=== PATIENT | female | born 1960 | race Caucasian/White ===

== ENCOUNTER 2020-03-19 09:28 | Outpatient (CLI) | payer BC, SELFPAY ==
--- NOTE | ~2020-03-19 | MM_ITS ---
EXAMINATION: MM screening edwin BI w marc HISTORY: Screening TECHNIQUE: Craniocaudal and mediolateral oblique 3-D tomosynthesis images were obtained and synthetic 2-D images were generated. CAD analysis was submitted and interpreted. COMPARISON: Comparison to multiple prior studies sequentially, with oldest reviewed study dated 01/26. BREAST PARENCHYMAL COMPOSITION: Breast composed of scattered areas of fibroglandular density. FINDINGS: There is focal asymmetry in the upper outer quadrant of the right breast. The left breast i s stable without evidence for malignancy. IMPRESSION: 1. Focal right breast asymmetry, upper outer quadrant. 2. Additional mammographic views and possible breast ultrasound are recommended. BI-RADS Category 0: Incomplete: Needs additional imaging evaluation. Reviewed, dictated and finalized at location A. IMPRESSION: 1. Focal right breast asymmetry, upper outer quadrant. 2. Additional mammographic views and possible breast ultrasound are recommended . BI-RADS Category 0: Incomplete: Needs additional imaging evaluation.
[2020-03-19 12:37] LABS: Free T4 Free Thyroxine 1.01 ng/mL (0.78-2.19); Vitamin D 25 Hydroxy 34.3 ng/mL
== END 2020-03-19 09:29 | disposition home or self-care (01) ==
PROVIDERS: Nurse Practitioner; PCP Internal Medicine; Visit Provider Obstetrics & Gynecology
DX: Z12.31 Encounter for screening mammogram for malignant neoplasm of breast (principal); R94.6 Abnormal results of thyroid function studies; E55.9 Vitamin D deficiency, unspecified; R92.8 Other abnormal and inconclusive findings on diagnostic imaging of breast
CPT/HCPCS: 36415; 77063; 77067; 82306; 84439; 84443

== ENCOUNTER 2020-04-15 13:30 | Outpatient (CLI) | payer BC, MEDICAID, SELFPAY ==
--- NOTE | ~2020-04-15 | MMUS_ITS ---
EXAMINATION: MM diagnostic mammo unilat RT, US breast RT limited HISTORY: Follow-up right breast asymmetry TECHNIQUE: Additional 3-D tomosynthesis images of the right breast were performed and synthetic 2-D i mages were generated. CAD analysis was submitted and interpreted. High resolution limited right breas t ultrasound was performed. COMPARISON: 03/19/2020 BREAST PARENCHYMAL COMPOSITION: Breast composed of scattered areas of fibroglandular density. FINDINGS: MAMMOGRAPHIC FINDINGS: Breast composed of scattered areas of fibroglandular density. There are no suspicious masses, calcifi cations or architectural distortion to suggest malignancy. Focal asymmetry is less apparent with comp ression views. ULTRASOUND: Limited right breast ultrasound: At 9:00, 7 cm from the nipple, there is a 5 mm intramammary lymph no de. No suspicious masses to suggest malignancy. IMPRESSION: 1. No evidence for malignancy in the right breast. 2. Routine yearly screening mammogram and regular clinical breast examination are recommended. BI-RADS Category 1: Negative Reviewed, dictated and finalized at location A. IMPRESSION: 1. No evidence for malignancy in the right breast. 2. Routine yearly screening mammogram and regular clinical breast examination a re recommended. BI-RADS Category 1: Negative
== END 2020-04-15 13:31 | disposition home or self-care (01) ==
PROVIDERS: PCP Internal Medicine; Visit Provider Obstetrics & Gynecology
DX: R92.8 Other abnormal and inconclusive findings on diagnostic imaging of breast (principal)
CPT/HCPCS: 76642; 77065

== ENCOUNTER 2020-09-16 10:25 | Outpatient (CLI) | payer OTHER, SELFPAY ==
--- NOTE | ~2020-09-16 | CT_ITS ---
EXAMINATION: CT brain wo con EXAM DATE: 09/16/2020 10:58 INDICATION: G44.309 - Post-traumatic posterior headache, unspecified, not intractable. Blurry vision and dizziness. TECHNIQUE: Spiral CT of the head was performed without contrast. Axial, coronal and sagittal images were reviewed. The dose-length product (DLP) for this examination was 605.33 mGy-cm. The exposure w as tailored according to patient size, and iterative reconstruction (ASIR) was used as additional dos e reduction technique. Comparison is made to prior examination from 07/29/2017. FINDINGS: There is no acute intraparenchymal hemorrhage. No evidence of intraparenchymal brain mass lesion. No evidence of acute infarction. There is no mass effect or midline shift. The ventricles are normal in size. There are no extra-axial collections. There are no acute calvarial fractures. T he orbits are unremarkable. Soft tissue is unremarkable. The visualized sinuses and mastoid air erasmo ls are well aerated. IMPRESSION: 1. Unremarkable head CT examination. Reviewed, dictated and finalized at location B. 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
== END 2020-09-16 10:26 | disposition home or self-care (01) ==
PROVIDERS: PCP Internal Medicine; Visit Provider Nurse Practitioner
DX: G44.309 Post-traumatic headache, unspecified, not intractable (principal)
CPT/HCPCS: 70450

== ENCOUNTER 2020-10-15 13:20 | Outpatient (CLI) | payer OTHER, SELFPAY ==
--- NOTE | 2020-10-15 14:30 | NEURO_ITS ---
Impression: # Complains of left upper extremity pain. # No Carpal Tunnel Syndrome or ulnar neuropathy. # Normal needle/EMG exam. # Clinical correlation recommended. Nerve Conduction Studies Anti Sensory Summary Table Stim Site NR Peak (ms) P-T Amp (?V) Site1 Site2 Delta-P (ms) Dist (cm) Tomi (m/s) Left Median Anti Sensory (2-3nd Digit) Wrist 2.8 98.2 Wrist 2-3nd Digit 2.8 14.0 50 Wrist 2.8 85.2 Wrist 2-3nd Digit 2.8 14.0 50 Left Radial Anti Sensory (Base 1st Digit) Wrist 1.9 19.0 Wrist Base 1st Digit 1.9 0.0 Left Ulnar Anti Sensory (5th Digit) Wrist 2.3 85.2 Wrist 5th Digit 2.3 14.0 61 Motor Summary Table Stim Site NR Onset (ms) O-P Amp (mV) Site1 Site2 Delta-0 (ms) Dist (cm) Tomi (m/s) Left Median Motor (Abd Poll Brev) Wrist 2.7 6.7 Elbow Wrist 3.9 24.0 62 Elbow 6.6 6.4 Left Ulnar Motor (Abd Dig Minimi) Wrist 2.2 6.7 A Elbow Wrist 4.4 26.0 59 A Elbow 6.6 4.3 F Wave Studies NR F-Lat (ms) L-R F-Lat (ms) Left Median (Mrkrs) (Abd Poll Brev) 24.80 Left Ulnar (Mrkrs) (Abd Dig Min) 25.44 EMG Side Muscle Nerve Root Ins Act Fibs Amp Dur Recrt Comment Left 1stDorInt Ulnar C8-T1 Nml Nml Nml Nml Nml Left Ext Indicis Radial (Post Int) C7-8 Nml Nml Nml Nml Nml Left Ext Digitorum Radial (Post Int) C7-8 Nml Nml Nml Nml Nml Left BrachioRad Radial C5-6 Nml Nml Nml Nml Nml Left PronatorTeres Median C6-7 Nml Nml Nml Nml Nml Left Abd Poll Brev Median C8-T1 Nml Nml Nml Nml Nml Left ABD Dig Min Ulnar C8-T1 Nml Nml Nml Nml Nml Left Biceps Musculocut C5-6 Nml Nml Nml Nml Nml Left Triceps Radial C6-7-8 Nml Nml Nml Nml Nml MTDD
== END 2020-10-15 13:21 | disposition home or self-care (01) ==
LOC: ANHNEURO 13:22
PROVIDERS: PCP Internal Medicine; Visit Provider Nurse Practitioner
DX: R20.2 Paresthesia of skin (principal)
CPT/HCPCS: 95886; 95909

== ENCOUNTER 2021-02-04 08:46 | Outpatient (CLI) | payer OTHER, SELFPAY ==
[2021-02-04 10:36] LABS: Alanine Aminotransferase 20 U/L (4-35); Albumin Level 4.5 g/dL (3.5-5.1); Alkaline Phosphatase 98 U/L (38-126); Anion Gap 9 mmol/L (8-16); Aspartate Amino Transferase 26 U/L (14-36); Bilirubin,Total 0.5 mg/dL (0.2-1.3); Blood Urea Nitrogen 15 mg/dL (7-17); Calcium 9.6 mg/dL (8.4-10.2); Carbon Dioxide 25 mmol/L (22-30); Chloride 106 mmol/L (98-107); Estimated Glomerular Filt Rate > 60; Glucose 87 mg/dL (65-110); Potassium 4.3 mmol/L (3.4-5.0); Sodium 140 mmol/L (137-145)
[2021-02-04 10:51] LABS: Free T4 Free Thyroxine 1.21 ng/mL (0.78-2.19); Vitamin D 25 Hydroxy 54.2 ng/mL
== END 2021-02-04 08:47 | disposition home or self-care (01) ==
PROVIDERS: Nurse Practitioner; PCP Internal Medicine; Visit Provider Internal Medicine Hematology & Oncology
DX: E55.9 Vitamin D deficiency, unspecified (principal); R94.6 Abnormal results of thyroid function studies; Z79.899 Other long term (current) drug therapy
CPT/HCPCS: 36415; 80053; 82306; 84439; 84443

== ENCOUNTER 2021-03-02 09:34 | Outpatient (CLI) | payer OTHER, SELFPAY ==
--- NOTE | ~2021-03-02 | DEXA_ITS ---
Bone Density Report Name: Brittany Loja Age: 60 Sex: Female Ethnicity: White Date of : 1960 Indication: postmenopausal; height loss; prior fracture; asthma or emphysema; Referring Provider: EFREM VICENTE Study: Bone densitometry was performed. Exam Date: March 02, 2021 Accession number: [id number] Bone Density: Region BMD T-score Z-score Classification AP Spine (L1-L4) 0.910 -1.2 0.1 Osteopenia Femoral Neck (Left) 0.566 -2.6 -1.3 Osteoporosis Total Hip (Left) 0.733 -1.7 -0.8 Osteopenia Total Hip Bilateral Avg 0.712 -1.9 -1.0 Osteopenia Femoral Neck (Right) 0.582 -2.4 -1.2 Osteopenia Total Hip (Right) 0.690 -2.1 -1.1 Osteopenia World Health Organization criteria for BMD impression classify patients as: Normal (T-score at or above -1.0), Osteopenia (T-score between -1.0 and -2.5), or Osteoporosis (T-score at or below -2.5). 10-year Fracture Risk: FRAX not reported because: Some T-score for Spine Total or Hip Total or Femoral Neck at or below -2.5 Clinical Information Provided by Patient: Has had a low trauma fracture Has used the following medications: Vitamin D, Calcium Has the following medical conditions: Asthma or Emphysema Patient maximum height was 62 Menopause Age: 58 Does not regularly consume dairy products Drinks caffeinated beverages Onset of menses at age 14 Number of children 3 Impression: The patient has established osteoporosis, based on the Left Femoral Neck T-score and the existence of a prior fracture. The patient has risk factors, including: previous fracture. Discussion: HIGH RISK OF FRACTURE. BONE DENSITY IS UNDESIRABLY LOW AT ONE OR MORE SKELETAL SITES, CONSISTENT WITH POSTMENOPAUSAL OSTEOPOROSIS. This patient's lowest T-score, in a patient who has previously fractured, meets the World Health Organization's (WHO) criteria for severe osteoporosis. In untreated patients, the risk of osteoporotic fracture increases approximately two-fold for each 1.0 SD decrease in T-score. Low bone density is not the only risk factor for fracture; also consider factors such as patient's age, frailty or poor health, risk of falling, risk of injury, previous osteoporotic fracture, family history of osteoporosis, cigarette smoking, low body weight, etc. Not everyone with low bone mineral density has osteoporosis; osteomalacia and other metabolic bone disorders should also be considered. Patients who have osteoporosis should be evaluated for specific diseases and conditions (secondary causes) that may cause or contribute to bone loss. The [place] [employer] Endocrinologists (AACE) and National Osteoporosis Foundation (NOF) recommend pharmacologic intervention for all postmenopausal women whose T-score is in this range. The patient should follow a healthful lifestyle (good nutrition with adequa
== END 2021-03-02 09:35 | disposition home or self-care (01) ==
PROVIDERS: PCP Internal Medicine; Visit Provider Obstetrics & Gynecology
DX: Z13.820 Encounter for screening for osteoporosis (principal); Z78.0 Asymptomatic menopausal state; M85.88 Other specified disorders of bone density and structure, other site; M81.0 Age-related osteoporosis without current pathological fracture; M85.852 Other specified disorders of bone density and structure, left thigh; M85.851 Other specified disorders of bone density and structure, right thigh
CPT/HCPCS: 77080

== ENCOUNTER 2021-03-24 14:53 | Outpatient (CLI) | payer OTHER, SELFPAY ==
--- NOTE | ~2021-03-24 | MM_ITS ---
EXAMINATION: MM screening edwin BI w marc HISTORY: Screening TECHNIQUE: Craniocaudal and mediolateral oblique 3-D tomosynthesis images were obtained and synthetic 2-D images were generated. CAD analysis was submitted and interpreted. COMPARISON: Comparison to multiple prior studies sequentially, with oldest reviewed study dated 03/07. BREAST PARENCHYMAL COMPOSITION: There are scattered areas of fibroglandular density. FINDINGS: There is no evidence of suspicious mass, calcification, or architectural distortion to sugg est malignancy in either breast. There has been no suspicious interval change. IMPRESSION: 1. No mammographic evidence of malignancy. 2. Recommend routine screening mammography in one year. BI-RADS Category 1: Negative Reviewed, dictated and finalized at location A.
== END 2021-03-24 14:54 | disposition home or self-care (01) ==
LOC: ANHIMG 14:54
PROVIDERS: PCP Internal Medicine; Visit Provider Obstetrics & Gynecology
DX: Z12.31 Encounter for screening mammogram for malignant neoplasm of breast (principal)
CPT/HCPCS: 77063; 77067

== ENCOUNTER 2021-10-19 00:13 | Day surgery (SDC) | payer OTHER, SELFPAY ==
[2021-10-07 15:10] VITALS: BMI 26.9
--- NOTE | 2021-10-18 11:15 | PM.HPGS ---
History of Present Illness History of Present Illness Consent: Risks, benefits, and alternatives have been discussed and questions answered. Patient agrees to proceed with procedure. Chief complaint: neoplasm screening Narrative: Brittany Loja is a 61 year old female Was referred for colon cancer screening. Her last colonoscopy was 10 years ago Review of Systems Review of Systems: All systems reviewed & are unremarkable except as noted in HPI and below PMFSH Past Medical History Medical History Osteoporosis Uncomplicated asthma Vitamin D deficiency Family History Family History Mother Hypertension Father Family history of malignant neoplasm Social History Social History Smoking packs per day: 1 Smoking cigarettes per day: 20.0 Years smoked: 8 Smoking pack-years: 8.00 Smoking status: Former smoker Tobacco type: cigarettes Second hand tobacco smoke exposure: No Smoking end date: 05/22/87 Alcohol intake: former 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 Substance use: current Substance use type: marijuana Living arrangements: alone Additional occupation/education comments: works for [employer] Gender identity (if verbalized by the patient): Female Sexual Orientation (if Verbalized by the Patient): Straight or Heterosexual Spiritual care concerns: No Meds Home Medications and Allergies Home Medications Medication Instructions Recorded Confirmed Type estradiol-norethindrone acet 0.5 1 tablet PO DAILY 05/31/19 10/19/21 History mg-0.1 mg tablet cholecalciferol (vitamin D3) 125 125 mcg PO DAILY #30 cap 09/12/20 10/19/21 Rx mcg (5,000 unit) capsule albuterol sulfate 90 mcg/actuation 2 inh INHALATION Q4H PRN #18 g 02/04/21 10/19/21 Rx aerosol inhaler methocarbamol 750 mg tablet 750 mg PO TID PRN #45 tablet 02/04/21 10/19/21 Rx montelukast 10 mg tablet 10 mg PO DAILY #90 tablet 06/02/21 10/19/21 Rx alendronate 70 mg tablet 70 mg PO WEEKLY 09/11/21 10/19/21 History budesonide-formoterol HFA 160 See Rx Instructions .ROUTE 10/05/21 10/19/21 Rx mcg-4.5 mcg/actuation aerosol .COMPLEX #10.2 inhaler inhaler acyclovir 800 mg PO DAILY 10/07/21 10/19/21 History estradiol 0.5 mg PO DAILY 10/07/21 10/19/21 History glucosamine-chondroitin [Osteo 2 tablet PO DAILY 10/07/21 10/19/21 History Bi-Flex] multivit with min-folic acid 1 tablet PO DAILY 10/07/21 10/19/21 History [Adult One Daily Multivitamin] Allergies Allergy/AdvReac Type Severity Reaction Status Date / Time No Known Allergies Allergy Verified 10/19/21 09:53 Exam Resp: Auscultation: clear to auscultation bilaterally Cardio: Rate: regular rate Rhythm: regular rhythm GI: GI Palp: Yes Soft to palpation and No Tenderness to palpation present (GI) Assessment and Plan Assessment and plan (1) Screening for colon cancer: Code(s): Z12.11 - Encounter for screening for malignant neoplasm of colon Status: Acute Assessment and Plan: Colonoscopy with possible biopsy or polypectomy or cautery or injection of substances.
[2021-10-19 09:45] VITALS: BP 145/91; PULSE 96; RESP 16; TEMP 36.8; O2SAT 100; BMI 26.7
[2021-10-19] MEDS: LACTATED RINGERS 1,000 ML 150 ML IV CONT (10:08)
--- NOTE | 2021-10-19 10:58 | WPDANESEPPF ---
Anes - Initial Pre Proc Eval Procedure: Operation Date: 10/19/21 11:15 Proposed Procedures p Screening Colonoscopy - Sp Ty MD Date/Time: 10/19/21 10:58 Surgeon: Sp Ty MD Pre Op Diagnosis: neoplasm screening Patient Data Age: 61 Gender: F Height: 1.6 m Weight: 68.5 kg Last Vital Signs Temp 98.3 F 10/19/21 09:45 Pulse 96 10/19/21 09:45 Resp 16 10/19/21 09:45 BP 145/91 H 10/19/21 09:45 Pulse Ox 100 10/19/21 09:45 Allergies Allergy/AdvReac Type Severity Reaction Status Date / Time No Known Allergies Allergy Verified 10/19/21 09:53 Home Medications Medication Instructions Recorded Confirmed Type estradiol-norethindrone acet 0.5 1 tablet PO DAILY 05/31/19 10/19/21 History mg-0.1 mg tablet cholecalciferol (vitamin D3) 125 125 mcg PO DAILY #30 cap 09/12/20 10/19/21 Rx mcg (5,000 unit) capsule albuterol sulfate 90 mcg/actuation 2 inh INHALATION Q4H PRN #18 g 02/04/21 10/19/21 Rx aerosol inhaler methocarbamol 750 mg tablet 750 mg PO TID PRN #45 tablet 02/04/21 10/19/21 Rx montelukast 10 mg tablet 10 mg PO DAILY #90 tablet 06/02/21 10/19/21 Rx alendronate 70 mg tablet 70 mg PO WEEKLY 09/11/21 10/19/21 History budesonide-formoterol HFA 160 See Rx Instructions .ROUTE 10/05/21 10/19/21 Rx mcg-4.5 mcg/actuation aerosol .COMPLEX #10.2 inhaler inhaler acyclovir 800 mg PO DAILY 10/07/21 10/19/21 History estradiol 0.5 mg PO DAILY 10/07/21 10/19/21 History glucosamine-chondroitin [Osteo 2 tablet PO DAILY 10/07/21 10/19/21 History Bi-Flex] multivit with min-folic acid 1 tablet PO DAILY 10/07/21 10/19/21 History [Adult One Daily Multivitamin] Patient hx anesthesia problems: none Family hx anesthesia problems: none Results Review: All pre-operative results and documents have been reviewed as part of the pre-operative evaluation. 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 Substance use: current Substance use type: marijuana Living arrangements: alone Additional occupation/education comments: works for [employer] Gender identity (if verbalized by the patient): Female Sexual Orientation (if Verbalized by the Patient): Straight or Heterosexual Spiritual care concerns: No Anes - Eval Final PreProcedure Day of Procedure 10/19/21 10:58 Patient weight: normal Heart: regular rate and rhythm Lungs: clear to auscultation Airway: Mallampati scale class II Neurological: alert and oriented Last oral intake: >/= 8 hours ASA classification: II Anesthetic plan: proceed Anesthesia type and monitoring: general GIVS and standard monitoring Results Review: All pre-operative results and documents have been reviewed as part of the pre-operative evaluation. Informed Consent: The patient's anesthetic plan and its attendant risks and benefits were discussed with the patient/family/POA. Questions were solicited and answers provided to the satisfaction of the patient/family/POA.
[2021-10-19] MEDS: SIMETHICONE ORAL SUSPENSION 20 MG/0.3 ML 30 ML BOTTLE 0.6 ML IRRIGATION (11:09)
[2021-10-19 11:23] VITALS: BP 104/62; PULSE 70; RESP 16; O2SAT 99
[2021-10-19 11:33] VITALS: BP 117/70; PULSE 68; RESP 21; O2SAT 99
[2021-10-19 11:43] VITALS: BP 138/80; PULSE 61; RESP 17; O2SAT 98
== END 2021-10-19 11:51 | disposition home or self-care (01) ==
PROVIDERS: PCP Internal Medicine; Visit Provider Internal Medicine Gastroenterology
PROC: 0DJD8ZZ Inspection of Lower Intestinal Tract, Via Natural or Artificial Opening Endoscopic (ICD-10-PCS; CPT 45378; principal; 2021-10-19 11:15)
DX: Z12.11 Encounter for screening for malignant neoplasm of colon (principal); D36.9 Benign neoplasm, unspecified site; J45.909 Unspecified asthma, uncomplicated; E55.9 Vitamin D deficiency, unspecified; M81.0 Age-related osteoporosis without current pathological fracture; Z87.891 Personal history of nicotine dependence
CPT/HCPCS: 45385; 45381; 88305; J2704; J7120

== ENCOUNTER 2022-03-19 08:47 | Outpatient (CLI) | payer OTHER, SELFPAY ==
[2022-03-19 13:23] LABS: Alanine Aminotransferase 27 U/L (6-35); Albumin Level 4.7 g/dL (3.5-5.1); Alkaline Phosphatase 62 U/L (38-126); Anion Gap 11 mmol/L (8-16); Aspartate Amino Transferase 31 U/L (14-36); Bilirubin,Total 0.7 mg/dL (0.2-1.3); Blood Urea Nitrogen 11 mg/dL (7-17); Calcium 10.1 mg/dL (8.4-10.2); Carbon Dioxide 24 mmol/L (22-30); Chloride 106 mmol/L (98-107); Cholesterol 246 mg/dL (0-200); Estimated Glomerular Filt Rate > 60; Glucose 89 mg/dL (65-110); HDL Direct 96 mg/dL; Sodium 141 mmol/L (137-145); Triglycerides 68 mg/dL (<150)
[2022-03-19 13:31] LABS: Vitamin D 25 Hydroxy 55.4 ng/mL
[2022-03-19 13:37] LABS: LDL Cholesterol Direct 87 mg/dL
== END 2022-03-19 08:48 | disposition home or self-care (01) ==
LOC: ANHLAB 08:49
PROVIDERS: PCP Internal Medicine; Visit Provider Nurse Practitioner
DX: E55.9 Vitamin D deficiency, unspecified (principal); R94.6 Abnormal results of thyroid function studies; Z79.899 Other long term (current) drug therapy
CPT/HCPCS: 36415; 80053; 80061; 82306; 84443

== ENCOUNTER 2022-08-03 09:12 | Outpatient (CLI) | payer MEDICARE, SELFPAY ==
--- NOTE | ~2022-08-03 | MM_ITS ---
EXAMINATION: MM screening edwin BI w marc HISTORY: Screening mammogram TECHNIQUE: Craniocaudal and mediolateral oblique 3-D tomosynthesis images were obtained and synthetic 2-D images were generated. CAD analysis was submitted and interpreted. COMPARISON: 03/24/2021 bilateral screening mammogram 04/15/2020 diagnostic right mammogram and limited right breast ultrasound 03/19/2020, 12/07/2018 bilateral screening mammogram examinations BREAST PARENCHYMAL COMPOSITION: FINDINGS: There is no evidence of suspicious mass, calcification, or architectural distortion to sugg est malignancy in either breast. There has been no suspicious interval change. IMPRESSION: 1. No mammographic evidence of malignancy. 2. Recommend routine screening mammography in one year. BI-RADS Category 1: Negative Reviewed, dictated and finalized at location A. 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
== END 2022-08-03 09:13 | disposition home or self-care (01) ==
PROVIDERS: PCP Internal Medicine; Visit Provider Physician Assistant
DX: Z12.31 Encounter for screening mammogram for malignant neoplasm of breast (principal)
CPT/HCPCS: 77063; 77067

== ENCOUNTER 2022-09-28 08:32 | Outpatient (CLI) | payer MEDICARE, SELFPAY ==
[2022-09-28 10:31] LABS: LDL Cholesterol Direct 117 mg/dL
[2022-09-28 10:37] LABS: Alanine Aminotransferase 23 U/L (6-35); Albumin Level 4.6 g/dL (3.5-5.1); Alkaline Phosphatase 75 U/L (38-126); Anion Gap 6 mmol/L (8-16); Aspartate Amino Transferase 30 U/L (14-36); Bilirubin,Total 0.7 mg/dL (0.2-1.3); Blood Urea Nitrogen 17 mg/dL (7-17); Calcium 9.3 mg/dL (8.4-10.2); Carbon Dioxide 28 mmol/L (22-30); Chloride 107 mmol/L (98-107); Cholesterol 264 mg/dL (0-200); Estimated Glomerular Filt Rate > 60; Glucose 89 mg/dL (65-110); HDL Direct 102 mg/dL; Potassium 4.3 mmol/L (3.4-5.0); Sodium 141 mmol/L (137-145); Triglycerides 56 mg/dL (<150)
== END 2022-09-28 08:33 | disposition home or self-care (01) ==
LOC: ANHLAB 08:34
PROVIDERS: PCP Internal Medicine; Visit Provider Nurse Practitioner Family
DX: E78.00 Pure hypercholesterolemia, unspecified (principal); Z13.6 Encounter for screening for cardiovascular disorders
CPT/HCPCS: 36415; 80053; 80061

== ENCOUNTER 2022-12-30 08:06 | Outpatient (CLI) | payer MEDICARE, SELFPAY ==
[2022-12-30 10:13] LABS: Cholesterol 242 mg/dL (0-200); HDL Direct 100 mg/dL; Triglycerides 74 mg/dL (<150)
[2022-12-30 10:24] LABS: LDL Cholesterol Direct 108 mg/dL
== END 2022-12-30 08:07 | disposition home or self-care (01) ==
LOC: ANHLAB 08:08
PROVIDERS: Nurse Practitioner Family; PCP Nurse Practitioner; Visit Provider Internal Medicine Hematology & Oncology
DX: Z13.6 Encounter for screening for cardiovascular disorders (principal); E78.9 Disorder of lipoprotein metabolism, unspecified
CPT/HCPCS: 36415; 80061

== ENCOUNTER 2023-09-02 06:30 | Day surgery (SDC) | payer MEDICARE, SELFPAY ==
[2023-08-02 14:42] VITALS: BMI 28.5
--- NOTE | 2023-08-30 13:50 | PC.NURSE ---
Patient called regarding upcoming procedure. Reviewed preop instructions, appointment times, and procedure prep.
--- NOTE | 2023-09-01 20:32 | PM.HPGS ---
History of Present Illness History of Present Illness Consent: Risks, benefits, and alternatives have been discussed and questions answered. Patient agrees to proceed with procedure. Chief complaint: GERD without esophagitis Narrative: Brittany Simon is a 62 year old female who's ?brother has recently been found have advanced Barretts esophagus apparently with malignant transformation.? He has begun treatments with radiofrequency ablation.? She has never had an EGD.? She has history of reflux in that she saw an ENT physician for a raspy voice a couple of years ago in he diagnosed her with laryngeal reflux Review of Systems Review of Systems: All systems reviewed & are unremarkable except as noted in HPI and below PMFSH Past Medical History Medical History Chronic low back pain COVID-19 Hx of traumatic brain injury Osteoporosis Uncomplicated asthma Vitamin D deficiency Surgical History Surgical History Previous section Family History Family History Mother Hypertension Father Family history of malignant neoplasm Social History Social History Smoking packs per day: 1 Smoking cigarettes per day: 20.0 Years smoked: 10 Smoking pack-years: 10.00 Smoking status: Former smoker Tobacco type: cigarettes Second hand tobacco smoke exposure: No Smoking end date: 05/22/87 Alcohol intake: former 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 Substance use: current Substance use type: marijuana Lack of Transportation: No Lack of Food: Never True Current Housing: I Have Housing Concerned About Future Housing: No Difficulty Paying Gas/Electric Bills: No Difficulty Paying for Meds: No Currently Unemployed: No Education: High School Diploma/GED Difficulty w/ Childcare or Family Care: No Living arrangements: alone Occupation/Education: occupation Additional occupation/education comments: works for [employer] Gender identity (if verbalized by the patient): Female Sexual Orientation (if Verbalized by the Patient): Straight or Heterosexual Spiritual care concerns: No Meds Home Medications and Allergies Home Medications Medication Instructions Recorded Confirmed Type cholecalciferol (vitamin D3) 125 125 mcg PO DAILY #30 caps 03/05/21 01/23/24 Rx mcg (5,000 unit) capsule alendronate 70 mg tablet 70 mg PO WEEKLY 09/11/21 08/02/23 History acyclovir 800 mg tablet 800 mg PO DAILY 10/07/21 08/02/23 History glucosamine-chondroitin 250 mg-200 2 tablet PO DAILY 10/07/21 08/02/23 History mg tablet (Osteo Bi-Flex) multivitamin with minerals-folic 1 tablet PO DAILY 10/07/21 08/02/23 History acid 0.4 mg tablet methocarbamol 750 mg tablet 750 mg PO TID PRN muscle spasm #45 04/19/22 08/02/23 Rx tabs budesonide-formoterol HFA 160 See Rx Instructions .Route 05/20/22 08/02/23 Rx mcg-4.5 mcg/actuation aerosol .COMPLEX ##10.2 inhaler (Symbicort) albuterol sulfate 90 mcg/actuation 2 inh inhalation Q4H PRN shortness 07/21/22 08/02/23 Rx aerosol inhaler (Ventolin HFA) of breath or wheezing #18 grams cetirizine 10 mg tablet (Zyrtec) 10 mg PO DAILY PRN Allergic 11/09/22 08/02/23 History Symptoms triamcinolone acetonide 55 mcg 2 spray intranasal DAILY 11/09/22 08/02/23 History nasal spray aerosol (Nasacort Allergy) montelukast 10 mg tablet 10 mg PO DAILY #90 tabs 05/26/23 08/02/23 Rx Allergies Allergy/AdvReac Type Severity Reaction Status Date / Time No Known Allergies Allergy Verified 09/02/23 06:54 Exam Const: General: alert Orientation/consciousness: patient oriented x3 Resp: Auscultation: clear to auscultation bilaterally Cardio: Rhythm: regular rhythm GI: GI Palp: Yes Soft to palpation and No Tenderness to pal
[2023-09-02 06:55] VITALS: BP 147/76; PULSE 71; RESP 16; TEMP 36.2; O2SAT 100
[2023-09-02] MEDS: LACTATED RINGERS 1,000 ML 150 ML IV CONT (07:05)
--- NOTE | 2023-09-02 07:52 | WPDANESEPPF ---
Anes - Initial Pre Proc Eval Procedure: Operation Date: 09/02/23 08:00 Proposed Procedures p Esophagogastroduodenoscopy - Sp Ty MD Date/Time: 09/02/23 07:52 Surgeon: Sp Ty MD Pre Op Diagnosis: GERD without esophagitis Patient Data Age: 63 Gender: F Height: 1.6 m Weight: 74.2 kg Last Vital Signs Temp 97.2 F L 09/02/23 06:55 Pulse 71 09/02/23 06:55 Resp 16 09/02/23 06:55 BP 147/76 H 09/02/23 06:55 Pulse Ox 100 09/02/23 06:55 O2 Del Method Room Air 09/02/23 06:55 Allergies Allergy/AdvReac Type Severity Reaction Status Date / Time No Known Allergies Allergy Verified 09/02/23 06:54 Home Medications Medication Instructions Recorded Confirmed Type cholecalciferol (vitamin D3) 125 125 mcg PO DAILY #30 caps 09/12/20 08/02/23 Rx mcg (5,000 unit) capsule alendronate 70 mg tablet 70 mg PO WEEKLY 09/11/21 08/02/23 History acyclovir 800 mg tablet 800 mg PO DAILY 10/07/21 08/02/23 History glucosamine-chondroitin 250 mg-200 2 tablet PO DAILY 10/07/21 08/02/23 History mg tablet (Osteo Bi-Flex) multivitamin with minerals-folic 1 tablet PO DAILY 10/07/21 08/02/23 History acid 0.4 mg tablet methocarbamol 750 mg tablet 750 mg PO TID PRN muscle spasm #45 04/19/22 08/02/23 Rx tabs budesonide-formoterol HFA 160 See Rx Instructions .Route 05/20/22 08/02/23 Rx mcg-4.5 mcg/actuation aerosol .COMPLEX ##10.2 inhaler (Symbicort) albuterol sulfate 90 mcg/actuation 2 inh inhalation Q4H PRN shortness 07/21/22 08/02/23 Rx aerosol inhaler (Ventolin HFA) of breath or wheezing #18 grams cetirizine 10 mg tablet (Zyrtec) 10 mg PO DAILY PRN Allergic 11/09/22 08/02/23 History Symptoms triamcinolone acetonide 55 mcg 2 spray intranasal DAILY 11/09/22 08/02/23 History nasal spray aerosol (Nasacort Allergy) montelukast 10 mg tablet 10 mg PO DAILY #90 tabs 05/26/23 08/02/23 Rx Patient hx anesthesia problems: none Family hx anesthesia problems: none Results Review: All pre-operative results and documents have been reviewed as part of the pre-operative evaluation. 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 Substance use: current Substance use type: marijuana Lack of Transportation: No Lack of Food: Never True Current Housing: I Have Housing Concerned About Future Housing: No Difficulty Paying Gas/Electric Bills: No Difficulty Paying for Meds: No Currently Unemployed: No Education: High School Diploma/GED Difficulty w/ Childcare or Family Care: No Living arrangements: alone Occupation/Education: occupation Additional occupation/education comments: works for [employer] Gender identity (if verbalized by the patient): Female Sexual Orientation (if Verbalized by the Patient): Straight or Heterosexual Spiritual care concerns: No Anes - Eval Final PreProcedure Day of Procedure 09/02/23 07:52 Patient weight: normal Heart: regular rate and rhythm Lungs: clear to auscultation Airway: Mallampati scale class II Neurological: alert and oriented Last oral intake: >/= 8 hours ASA classification: III
[2023-09-02 08:12] VITALS: BP 117/60; PULSE 68; RESP 18; O2SAT 100
[2023-09-02 08:22] VITALS: BP 119/60; PULSE 64; RESP 18; O2SAT 100
[2023-09-02 08:32] VITALS: BP 134/67; PULSE 62; RESP 18; O2SAT 100
--- NOTE | 2023-09-02 13:41 | SUR.OPER ---
1300 patient called and left a voicemail regarding her having 2 bruises on her shoulders. 1330 returned pt's call. Asked patient to describe where these bruised were located and if they were there prior to having her procedure. Patient stated they were not there when she took her shower that morning. She described having two bruises on her chest on both sides up by her shoulders. I asked if the bruises where square in shape and she said yes they are. I explained that I thought what she is describing as bruises is a reaction from the EKG patches and that when they were removed some of the blood vessels just blow the skin may have been damaged. Patient agreed from what I was explaining that was the area the patches were for her procedure. I told the patient we would call and check on her on Tuesday.
== END 2023-09-02 08:38 | disposition home or self-care (01) ==
LOC: ANHENDO 08:52
PROVIDERS: PCP Nurse Practitioner; Visit Provider Internal Medicine Gastroenterology
PROC: 0DJ08ZZ Inspection of Upper Intestinal Tract, Via Natural or Artificial Opening Endoscopic (ICD-10-PCS; CPT 43235; principal; 2023-09-02 08:00)
DX: K21.9 Gastro-esophageal reflux disease without esophagitis (principal); E55.9 Vitamin D deficiency, unspecified; J45.909 Unspecified asthma, uncomplicated; M81.0 Age-related osteoporosis without current pathological fracture; Z79.51 Long term (current) use of inhaled steroids; Z87.891 Personal history of nicotine dependence; F12.90 Cannabis use, unspecified, uncomplicated; F10.21 Alcohol dependence, in remission; Z83.79 Family history of other diseases of the digestive system
CPT/HCPCS: 43239; 88305; J2001; J2704; J7120

== ENCOUNTER 2023-09-20 08:38 | Outpatient (CLI) | payer MEDICARE, SELFPAY ==
[2023-09-20 09:26] LABS: Hematocrit 42.1 % (37.0-47.0); Hemoglobin 14.1 g/dL (12.0-15.0); Mean Corpuscular HGB Conc 33.5 g/dl (32-36); Mean Corpuscular Hemoglobin 31.4 pg (26-34); Mean Corpuscular Volume 93.8 fl (80-100); Mean Platelet Volume 10.5 fl (7.4-10.4); Platelet Count Result 204 k/mm3 (150-375); Red Blood Count 4.49 M/mm3 (4.2-5.4); Red Cell Distribution Width 12.4 % (11.5-14.5); White Blood Count 4.5 K/mm3 (4.5-10.0)
[2023-09-20 10:11] LABS: Alanine Aminotransferase 20 U/L (6-35); Albumin Level 4.5 g/dL (3.5-5.1); Alkaline Phosphatase 94 U/L (38-126); Anion Gap 3 mmol/L (8-16); Aspartate Amino Transferase 28 U/L (14-36); Bilirubin,Total 0.5 mg/dL (0.2-1.3); Blood Urea Nitrogen 14 mg/dL (7-17); Calcium 10.4 mg/dL (8.4-10.2); Carbon Dioxide 30 mmol/L (22-30); Chloride 107 mmol/L (98-107); Cholesterol 225 mg/dL (0-200); Estimated Glomerular Filt Rate > 60; Glucose 96 mg/dL (65-110); HDL Direct 101 mg/dL; Potassium 4.1 mmol/L (3.4-5.0); Sodium 140 mmol/L (137-145); Triglycerides 58 mg/dL (<150)
[2023-09-20 10:22] LABS: LDL Cholesterol Direct 102 mg/dL
[2023-09-20 11:38] LABS: Vitamin D 25 Hydroxy 55.2 ng/mL
== END 2023-09-20 08:39 | disposition home or self-care (01) ==
PROVIDERS: PCP Nurse Practitioner; Visit Provider Internal Medicine Hematology & Oncology
DX: E55.9 Vitamin D deficiency, unspecified (principal); Z79.899 Other long term (current) drug therapy; E78.9 Disorder of lipoprotein metabolism, unspecified; K21.9 Gastro-esophageal reflux disease without esophagitis
CPT/HCPCS: 36415; 80053; 80061; 82306; 85027

== ENCOUNTER 2023-10-07 10:32 | Outpatient (CLI) | payer MEDICARE, SELFPAY ==
--- NOTE | ~2023-10-07 | DEXA_ITS ---
Bone Density Report Name: POPPY NICOLAS Age: 63 Sex: Female Ethnicity: White Date of : 1960 Indication: osteopenia; monitoring treatment; asthma or emphysema; Referring Provider: JEB, COSMO Study: Bone densitometry was performed. Exam Date: October 07, 2023 Accession number: [id number] Bone Density: Region BMD T-score Z-score Classification AP Spine(L1-L4) 0.941 -1.0 0.6 Normal Femoral Neck (Left) 0.613 -2.1 -0.8 Osteopenia Total Hip (Left) 0.868 -0.6 0.5 Normal Femoral Neck (Right) 0.617 -2.1 -0.7 Osteopenia Total Hip (Right) 0.791 -1.2 -0.2 Osteopenia Total Hip Mean 0.830 -0.9 0.2 Normal World Health Organization criteria for BMD impression classify patients as: Normal (T-score at or above -1.0), Osteopenia (T-score between -1.0 and -2.5), or Osteoporosis (T-score at or below -2.5). 10-year Fracture Risk: FRAX not reported because: Treated for osteoporosis Previous Exams: Region Exam Age BMD T-score BMD Change BMD Change Date g/cm2 vs Baseline vs Previous AP Spine (L1-L4) 10/07/2023 63 0.941 -1.0 0.031 (3.4%)* 0.031 (3.4%)* 03/02/2021 60 0.910 -1.2 Total Hip(Left) 10/07/2023 63 0.868 -0.6 0.136 (18.5%)* 0.136 (18.5%)* 03/02/2021 60 0.733 -1.7 Total Hip(Right) 10/07/2023 63 0.791 -1.2 0.101 (14.6%)* 0.101 (14.6%)* 03/02/2021 60 0.690 -2.1 *Denotes significance at 95% confidence level, LSC for AP Spine = 0.022 g/cm2, LSC for Total Hip = 0.027 g/cm2 Clinical Information Provided by Patient: Is being treated for osteoporosis Has used the following medications: Fosamax (i.e. alendronate), Vitamin D, Calcium Has the following medical conditions: Asthma or Emphysema Menopause Age: 58 No regular weight bearing exercise Drinks caffeinated beverages Onset of menses at age 14 Number of children 3 Missed period for more than 6 months in a row Impression: The patient has low bone mass, based on the Left Femoral Neck T-score. No significant bone loss was observed. Discussion: PATIENT UNDER TREATMENT WITH NO SIGNIFICANT BMD LOSS SINCE LAST EXAM. In an untreated patient, BMD typically declines with age. A lack of decline or gain is usually a sign that treatment is efficacious and fracture risk is reduced. It is important to ask patients whether they are taking their medications and to encourage continued and appropriate compliance with their osteoporosis therapies to reduce fracture risk. It is a
== END 2023-10-07 10:33 | disposition home or self-care (01) ==
LOC: ANHIMG 10:35
PROVIDERS: PCP Nurse Practitioner; Visit Provider Physician Assistant
DX: M81.0 Age-related osteoporosis without current pathological fracture (principal); M85.852 Other specified disorders of bone density and structure, left thigh; M85.851 Other specified disorders of bone density and structure, right thigh
CPT/HCPCS: 77080

== ENCOUNTER 2023-10-13 09:48 | Outpatient (CLI) | payer MEDICARE, SELFPAY ==
--- NOTE | ~2023-10-13 | MM_ITS ---
EXAMINATION: MM screening [facility] BI w [facility] HISTORY: Screening TECHNIQUE: Craniocaudal and mediolateral oblique 3-D tomosynthesis images were obtained and synthetic 2-D images were generated. CAD analysis was submitted and interpreted. COMPARISON: Comparison to multiple prior studies sequentially, with oldest reviewed study dated 02/2018. BREAST PARENCHYMAL COMPOSITION: Not dense: There are scattered areas of fibroglandular density. FINDINGS: There is no evidence of suspicious mass, calcification, or architectural distortion to sugg est malignancy in either breast. There has been no suspicious interval change. IMPRESSION: 1. No mammographic evidence of malignancy. 2. Recommend routine screening mammography in one year. BI-RADS Category 1: Negative Reviewed, dictated and finalized at location A.
== END 2023-10-13 09:49 | disposition home or self-care (01) ==
LOC: ANHIMG 09:50
PROVIDERS: PCP Nurse Practitioner; Visit Provider Physician Assistant
DX: Z12.31 Encounter for screening mammogram for malignant neoplasm of breast (principal)
CPT/HCPCS: 77063; 77067

== ENCOUNTER 2024-10-18 16:15 | Outpatient (CLI) | payer MEDICARE, SELFPAY ==
--- NOTE | ~2024-10-18 | MM_ITS ---
EXAMINATION: MM screening edwin BI w marc HISTORY: Screening TECHNIQUE: Craniocaudal and mediolateral oblique 3-D tomosynthesis images were obtained and synthetic 2-D images were generated. CAD analysis was submitted and interpreted. COMPARISON: Comparison to multiple prior studies sequentially, with oldest reviewed study dated 09/2018. BREAST PARENCHYMAL COMPOSITION: Not dense: There are scattered areas of fibroglandular density. FINDINGS: There is no evidence of suspicious mass, calcification, or architectural distortion to sugg est malignancy in either breast. There has been no suspicious interval change. IMPRESSION: 1. No mammographic evidence of malignancy. 2. Recommend routine screening mammography in one year. BI-RADS Category 1: Negative Reviewed, dictated and finalized at location A.
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
--- OUTSIDE RECORDS SUMMARY | 2024-10-18 16:19 | XMS_ITS | Data Portability ---
Author Organization [facility] Address [address] [place] [address] Care Team Providers Care Art Coordinator Name Role Phone BLAKE DIEGO Um Specialist Assessment Encounter Date Assessment Date Assessment LastModified by Organization Details LastModified Time 06/18/2024 06/18/2024 Sagar BOOTH [email or web address] Not available 06/18/2024 10:14:16 Plan of Treatment Reminders Order Date Submit Date Provider Last Modified By Organization Details Last Modified Time Details Appointments ANY 15 2024 02:30P M BLAKE DIEGO PA-C Not available Not available Not available Lab pap, IG + HPV, cervical 2022 023 [facility], [address], [place], [address], 05/28/2023 20:08:17 streptoc occus group B, culture, unspecif ied specimen 2020 021 [facility], [address], [place], [address], 10/19/2020 10:35:41 bacteria l vaginosi s panel, vaginal 2020 021 [facility], [address], [place], [address], 10/19/2020 10:35:40 urinalys is, dipstick 2020 021 [email or web address] In-Office Order, Internal Use Only DO Not Attach Compendium DO Not Attach Compendium, Do Not Delete/merge, [id number] 10/15/2020 11:39:28 Referral None recorded . Procedures None recorded . Surgeries None recorded . Imaging DEXA 2022 023 [facility] (Imaging), [address] [facility] [address], [place], [address], 10/10/2023 01:05:09 MAMMO, screenin g, bilatera l 2022 024 [facility] (Mammography) , [address], [place], [address], 10/13/2023 14:49:15 MAMMO, screenin g, bilatera l 2021 022 [facility] (Mammography) , [address], [place], [address], 08/16/2022 17:18:36 DEXA 2020 021 [facility], [address] [facility] [address], [place], [address], 03/02/2021 17:23:52 MAMMO, screenin g, bilatera l 2020 021 [facility], [facility] [address], [place], [address], 03/24/2021 16:41:40 Medication Orders alendron ate 70 mg tablet 2023 024 [facility], [address] [place] [address], [id number], 10/11/2024 10:46:07 valacycl ovir 1 gram tablet 2023 024 [facility], [address] [place] [address], [id number], 10/11/2024 10:46:06 alendron ate 70 mg tablet 2021 [id number] [facility], [address] [place] [address], [address], 05/26/2022 12:20:17 Calcium 600 + D(3) 600 mg-10 mcg (400 unit) tablet 2021 [facility] [id number], [address], 05/26/2022 12:20:18 alendron ate 70 mg tablet 2021 [facility] [address], [address], 10/15/2021 09:34:32 Calcium 600 + D(3) 600 mg-10 mcg (400 unit) tablet 2021 [facility] [address], [address], 10/15/2021 09:34:31 valacycl ovir 1 gram tablet 2021 022 [facility] [address], [address], 10/15/2021 09:34:31 acyclovi r 800 mg tablet 2020 021 [email or web address] [address], [address], 10/15/2021 09:33:25 estradio l 0.5 mg tablet 2020 021 [facility] [address], [address], 10/15/2021 10:03:19 norethin drone (contrac eptive) 0.35 mg tablet 2020 021 [email or web address] [address] In [facility], [address] [place], [address], 10/15/2021 10:03:22 Patient TargetsNo targets recorded. Patient Instructions Encounter Date Encounter Id Patient Instructions Last Modified By Organization Details Last Modified Time 10/15/2020 [id number] bacterial vaginosis: care instructions mwasserman Not available 10/15/2020 11:39:28 mammogram: about this test mwasserman Not available 10/15/2020 11:39:28 mammogram screening patient instructions [email or web address] Not available 10/15/2020 11:39:28 10/15/2021 [id number] osteoporosis: care instructions Not available 10/15/2021 09:34:[address] Blanca collier Not available 10/26/2021 15:09:39 05/26/2022 [id number] osteoporosis: care instructions Not available 05/26/2022 12:20:10 A healthy lifestyle: care instructions Not available 05/26/2022 12:49:54 learning about breast cancer screening Not available 05/26/2022 12:20:10 05/25/2023 [id number] A healthy lifestyle: care instructions Not available 05/25/2023 10:59:20 well visit, women 50 to 65: care instructions Not available 05/25/2023 10:55:22 learning about breast cancer screening Not available 05/25/2023 10:55:22 LEOBARDO Rehman discussed with STEPHANIE [email or web address] Not available 05/25/2023 12:21:49 06/18/2024 [id number] osteoporosis: care instructions [email or web address] Not available 06/18/2024 10:24:48 A healthy lifestyle: care instructions Not available 06/18/2024 10:24:48 --Discussed with Dr. Blanca collier Not available 06/18/2024 12:58:22 Reason for Referral None Reported. Results Created Date Observation Date Name Description Value Unit Range Abnormal Flag Note LastModifiedBy Organization Detail LastModifiedTime 10/16/19 21 10/15/2020 urina lysis , dipst ick Leukocytes Negati ve Not Available In-Office Order Internal Use Only DO Not Attach Compendium DO Not Attach Compendium, Do Not Delete/merge, [id number] 10/15/2020 10:05:19 10/16/19 21 10/15/2020 urina lysis , dipst ick Nitrite negati ve Not Available In-Office Order Internal Use Only DO Not Attach Compendium DO Not Attach Compendium, Do Not Delete/merge, [id number] 10/15/2020 10:05:19 10/16/19 21 10/15/2020 urina lysis , dipst ick Urobilinogen .2 Not Available In-Of fice Order Internal Use Only DO Not Attach Compendium DO Not Attach Compendium, Do Not Delete/merge, 10/15/2020 10:05:10/16/19 21 10/15/2020 urina lysis , dipst ick Protein Negati ve Not Available In-Office Order Internal Use Only DO Not Attach Compendium DO Not Attach Compendium, Do Not Delete/merge, 10/15/2020 10:05:19 10/16/19 21 10/15/2020 urina lysis , dipst ick pH 6.0 Not Available In-Office Order Internal Use Only DO Not Attach Compendium DO Not Attach Compendium, Do Not Delete/merge, 10/15/2020 10:05:19 10/16/19 21 10/15/2020 urina lysis , dipst ick Blood Hemoly zed: Trace Not Available In-Office Order Internal Use Only DO Not Attach Compendium DO Not Attach Compendium, Do Not Delete/merge, 10/15/2020 10:05:19 10/16/19 21 10/15/2020 urina lysis , dipst ick Specific [place] 1.030 Not Available In-Off ice Order Internal Use Only DO Not Attach Compendium DO Not Attach Compendium, Do Not Delete/merge, 10/15/2020 10:05:19 10/16/19 21 10/15/2020 urina lysis , dipst ick Ketone Negati ve Not Available In-Office Order Internal Use Only DO Not Attach Compendium DO Not Attach Compendium, Do Not Delete/merge, [id number] 10/15/2020 10:05:19 10/16/19 21 10/15/2020 urina lysis , dipst ick Bilirubin Negati ve Not Available In-Office Order Internal Use Only DO Not Attach Compendium DO Not Attach Compendium, Do Not Delete/merge, [id number] 10/15/2020 10:05:19 10/16/19 21 10/15/2020 urina lysis , dipst ick Glucose Negati ve Not Available In-Office Order Internal Use Only DO Not Attach Compendium DO Not Attach Compendium, Do Not Delete/merge, [id number] 10/15/2020 10:05:19 10/16/19 21 10/17/2020 bacte rial vagin osis panel , vagin al hsv 1 INDERJIT NEGATI VE negati ve Not Available [facility] ([facility]) [address] [place], [address], 10/19/2020 10:35:40 10/16/19 21 10/17/2020 bacte rial vagin osis panel , vagin al hsv 2 INDERJIT NEGATI VE negati ve Not Available [facility] ([facility]) [address] [place], [address], 10/19/2020 10:35:40 10/16/19 21 10/18/2020 bacte rial vagin osis panel , vagin al atopobium vaginae LOW - 0 score Not Available [facility] ([facility]) [address] [place], [address], 10/19/2020 10:35:40 10/16/19 21 10/18/2020 bacte rial vagin osis panel , vagin al bvab 2 LOW - 0 score Not Available [facility] ([facility]) [address] [place], [address], 10/19/2020 10:35:40 10/16/19 21 10/18/2020 bacte rial vagin osis panel , vagin al megasphaera 1 LOW - 0 score Calcu late total score by prieto jones the 3 indiv idual bacte rial vagin osis (BV) marke r score s toget her. Total score is inter prete d as follo ws: Total score 0-1: Indic ates the absen ce of BV. Total score 2: Indet ermin ate for BV. Addit ional clini parvez data shoul d be evalu ated to estab abhilash a diagn osis. Total score 3-6: Indic ates the prese nce of BV. This test was devel oped and its perfo rmanc e luzma cteri stics deter mined by [facility]. It has not been clear ed or appro sendy by the Food and Drug Admin istra tion. Not Available [facility] ([facility]) [address] [place], [address], 10/19/2020 10:35:40 10/16/19 21 10/18/2020 bacte rial vagin osis panel , vagin al yareli albicans, INDERJIT NEGATI VE negati ve Not Available [facility] ([facility]) [address] [place], [address], 10/19/2020 10:35:40 10/16/19 21 10/18/2020 bacte rial vagin osis panel , vagin al yareli glabrata, INDERJIT NEGATI VE negati ve Not Available [facility] ([facility]) [address] [place], [address], 10/19/2020 10:35:40 10/16/19 21 10/18/2020 bacte rial vagin osis panel , vagin al trich vag by INDERJIT NEGATI VE negati ve Not Available [facility] ([facility]) [address] [place], [address], 10/19/2020 10:35:40 10/16/19 21 10/18/2020 bacte rial vagin osis panel , vagin al chlamydia trachomatis, INDERJIT NEGATI VE negati ve Not Available [facility] ([facility]) [address] [facility], [place], [address], 10/19/2020 10:35:40 10/16/19 21 10/18/2020 bacte rial vagin osis panel , vagin al neisseria gonorrhoeae, INDERJIT NEGATI VE negati ve Not Available [facility] ([facility]) [address] [facility], [place], [address], 10/19/2020 10:35:40 10/16/19 21 10/19/2020 strep tococ cus group B, cultu re, unspe cifie d speci men strep gp B culture+rflx NEGATI VE negati ve Cente rs for Disea se Contr ol and Preve ntion (CDC) and Ameri can Congr ess of Obste trici ans and Gynec ologi sts (ACOG ) guide lines for preve ntion of perin atal group B strep tococ parvez (GBS) disea se speci fy co-co llect ion of a vagin al and recta l swab speci men to maxim ize sensi tivit y of GBS detec tion. Per the CDC and ACOG, swabb ing both the lower vagin a and rectu m subst antia lly incre ases the yield of detec tion denita red with sampl ing the vagin a alone . Penic illin G, ampic illin , or cefaz yessica are indic ated for intra partu m proph ylaxi s of perin atal GBS colon izati on. Refle x susce ptibi lity testi ng shoul d be perfo rmed prior to use of clind amyci n only on GBS isola josé miguel from penic illin -pawel rgic women who are consi dered a high risk for anaph ylaxi s. Treat ment with vanco mycin witho ut addit ional testi ng is warra nted if resis tance to clind amyci n is noted . Not Available [facility] ([facility]) [address] [facility], [place], [address], 10/19/2020 10:35:41 05/25/20 23 05/27/2023 IGP, APTIM A HPV HPV aptima NEGATI VE negati ve This nucle ic acid ampli ficat ion test detec ts fourt een high- risk HPV types (16,1 8,31, 33,35 ,39,4 5,51, 52,56 ,58,5 9,66, 68) witho ut diffe renti ation . Not Available [facility] ([facility]) [address] [facility], [place], [address], 05/28/2023 20:08:17 05/25/20 23 05/28/2023 IGP, APTIM A HPV diagnosis: MILDRED Huddleston NEGAT THERESA FOR INTRA EPITH ELIAL LESIO N OR MALELDER SCHROEDERCY . CELLU LAR PANCHAL ES ASSOC IATED WITH ATROP HY ARE PRESE NT. Not Available [facility] ([facility]) [address] [facility], [place], [address], 05/28/2023 20:08:17 05/25/20 23 05/28/2023 IGP, APTIM A HPV specimen adequacy: MILDRED Huddleston Satis facto ry for evalu ation . Endoc ervic al compo nent may not be disti nguis hed in cases of atrop hy. Areas of parti ally obscu ring infla mmato ry exuda te are prese nt. Not Available [facility] ([facility]) [address] [facility], [place], [address], 05/28/2023 20:08:17 05/25/20 23 05/28/2023 IGP, APTIM A HPV clinician provided ICD10: MILDRED Huddleston Z01.4 19 Not Available [facility] ([facility]) [address] [facility], [place], [address], 05/28/2023 20:08:17 05/25/20 23 05/28/2023 IGP, APTIM A HPV performed by: MILDRED Ireland , Cytot echno eleuterio t (ASCP ) Not Available [facility] ([facility]) [address] [facility], [place], [address], 05/28/2023 20:08:17 05/25/20 23 05/28/2023 IGP, APTIM A HPV . . Not Available [facility] ([facility]) [address] [facility], [place], [address], 05/28/2023 20:08:17 05/25/20 23 05/28/2023 IGP, APTIM A HPV note: COMMEN T The Pap smear is a scree ac test desig tarun to aid in the detec tion of carmen ligna nt and malig nant condi tions of the uteri ne cervi x. It is not a diagn ostic proce dure and shoul d not be used as the sole means of detec ting cervi parvez cance r. Both false -posi tive and false -nega tive repor ts do occur . Not Available [facility] ([facility]) [address] [facility], [place], [address], 05/28/2023 20:08:17 05/25/20 23 05/28/2023 IGP, APTIM A HPV test methodology: COMMEN T This liqui d based ThinP rep(R ) pap test was scree tarun with the use of an image guide gissell systkeya m. Not Available [facility] ([facility]) [address] [facility], [place], [address], 05/28/2023 20:08:17 03/02/20 21 03/02/2021 DEXA No observ ation record ed. [address], [address], 10/15/2021 09:22:40 03/24/20 21 03/24/2021 MAMMO , scree ac, bilat eral No observ ation record ed. [address], [address], 10/15/2021 09:22:40 04/01/20 21 DEXA No observ ation record ed. [email or web address] [facility] [address], [place], [address], 10/15/2021 09:22:40 08/16/19 23 08/03/2022 MAMMO , scree ac, bilat eral No observ ation record ed. [facility] (Mammography) [address], [place], [address], 08/18/2022 08:01:56 10/09/19 24 10/07/2023 DEXA No observ ation record ed. [place] [id number] [facility] [address], [place], [address], 06/18/2024 10:24:33 10/13/19 24 10/13/2023 MAMMO , scree ac, bilat eral No observ ation record ed. [address] (Mammography) [address], [place], [address], 06/18/2024 10:24:20 Result Notes None recorded. Problems Name Problem SNOMED Code Status Onset Date Resolution Date Notes Provider Name and Address Organization Details Recorded Time [facility] 22929057 Active 2018 LUCILA Moser SIMiguel Ángel 9 10:52:19 Herpes simplex 34832905 Active 2018 LUCILA Moser SIMiguel Ángel 9 11:00:07 Mammograph y abnormal 815748817 Active 2019 LUCILA Moser 0 08:52:30 Osteoporos is 56010250 Active 202010/07/23: no signicant change from previous. Consistent with low bone mas. continued medication therapy with alendronat e (started) in 2020, calcium and vit. Recommend 2 year follow-up. : 2025 Samantha Castillo MD Attn: Kaitlin jones,[address] , [place], [address], [facility] 4 11:21:58 Problem Notes None recorded. Procedures Surgical History Date Name Laterality Status Provider Name and Address Organization Details Recorded Time 4 Date of Last Mammogram completed Tatum Hernandez RN [facility] 10/13/2023 14:49:27 4 Most Recent Mammogram completed Sultana Perea MA [facility] 06/18/2024 09:46:28 3 Date of Last Pap Smear completed Sultana Perea MA [facility] 06/18/2024 09:44:44 1 Caesarean Section completed Laura Diehl MA [facility] 04/29/2015 11:49:08 8 Caesarean Section completed Laura Diehl MA [facility] 04/29/2015 11:49:08 7 Caesarean Section completed Laura Diehl MA [facility] 04/29/2015 11:49:08 Imaging Results Imaging Date Name Status LastModified by Organiz ation Details LastModified Time 03/02/2021 DEXA completed [address], [address], 10/15/2021 09:22:40 03/24/2021 MAMMO, screening, bilateral completed [address], [address], 10/15/2021 09:22:40 04/01/2021 DEXA completed [address], [address], 10/15/2021 09:22:40 08/03/2022 MAMMO, screening, bilateral completed [facility] (Mammography) [address], [place], [address], 08/18/2022 08:01:56 10/07/2023 DEXA completed [address] [facility] [address], [place], [address], 06/18/2024 10:24:33 10/13/2023 MAMMO, screening, bilateral completed [address] (Mammography) [address], [place], [address], 06/18/2024 10:24:20 Procedure Notes None recorded. Medical Equipment None Reported. Allergies No known drug allergies Medications Name Sig Start Date Stop Date Status Note LastModified by Organization Details LastModified Time multivitami n tablet Take 1 tablet every day by oral route. 10/15 completed Not Available Not Available Not Available amoxicillin 500 mg capsule 10/11 completed Not Available Not Available Not Available prednisone 10 mg tablet TAKE 4 TABLETS BY MOUTH ON DAYS 1-3, THEN TAKE TWO TABLETS ON DAYS 4-6, THEN TAKE ONE TABLET ON DAYS 7-9 06/18 completed Not Available Not Available Not Available azithromyci n 250 mg tablet TAKE 2 TABLETS BY MOUTH TODAY, THEN TAKE 1 TABLET DAILY FOR 4 DAYS 05/26 completed Not Available Not Available Not Available IBU 800 mg tablet 10/11 completed Not Available Not Available Not Available fluconazole 150 mg tablet Take 1 tablet by oral route. 10/15 completed Not Available Not Available Not Available levetiracet am 500 mg tablet 07/27 completed Not Available Not Available Not Available valacyclovi r 1 gram tablet Take 1 tablet every day by oral route as directed for 30 days. 2023 active Not Available Not Available Not Avai lable hydrocodone 5 mg-acetamin ophen 325 mg tablet TAKE 1 TABLET BY MOUTH EVERY 4 HOURS NEEDED FOR PAIN 06/18 completed Not Available Not Available Not Available alendronate 70 mg tablet TAKE ONE TABLET BY MOUTH EVERY WEEK 2023 active Not Available Not Available Not Avai lable metronidazo le 500 mg tablet Take 1 tablet twice a day by oral route for 7 days. 10/11 completed Not Available Not Available Not Available triamcinolo ne acetonide 0.1 % topical cream 10/15 completed Not Available Not Available Not Available butalbital- acetaminoph en-caffeine 50 mg-325 mg-40 mg tablet 07/27 completed Not Available Not Available Not Available acyclovir 800 mg tablet TAKE 1 TABLET BY MOUTH EVERY DAY 10/15 completed Not Available Not Available Not Available alprazolam 0.5 mg tablet 07/27 completed Not Available Not Available Not Available methocarbam ol 750 mg tablet TAKE 1 TABLET BY MOUTH THREE TIMES A DAY NEEDED FOR MUSCLE SPASM 06/18 completed Not Available Not Available Not Available pantoprazol e 40 mg tablet,kathleen yed release TAKE ONE TABLET BY MOUTH EVERY MORNING FOR STOMACH active Not Available Not Available No t Available montelukast 10 mg tablet TAKE ONE TABLET BY MOUTH EVERY DAY FOR BREATHING active Not Available Not Available No t Available estradiol 0.5 mg tablet TAKE 1 TABLET BY MOUTH EVERY DAY 10/15 completed Not Available Not Available Not Available estradiol 0.01% (0.1 mg/gram) vaginal cream Insert 1 g 3 times a week by vaginal route. 05/22 completed Not Available Not Available Not Available methylpredn isolone 4 mg tablets in a dose pack Use as directed on package active Not Available Not Available No t Available albuterol sulfate HFA 90 mcg/actuati on aerosol inhaler inhale TWO PUFFS BY MOUTH EVERY 4 HOURS NEEDED FOR BREATHING active Not Available Not Available No t Available Vitamin D2 1,250 mcg (50,000 unit) capsule 10/15 completed Not Available Not Available Not Available norethindro ne (contracept theresa) 0.35 mg tablet TAKE 1 TABLET BY MOUTH EVERY DAY 10/15 completed Not Available Not Available Not Available amoxicillin 875 mg-potassiu m clavulanate 125 mg tablet 07/27 completed Not Available Not Available Not Available oxycodone 5 mg tablet 07/27 completed Not Available Not Available Not Available Premarin 0.625 mg/gram vaginal cream Insert 1 g twice a week by vaginal route. 07/27 completed Not Available Not Available Not Available Symbicort 160 mcg-4.5 mcg/actuati on HFA aerosol inhaler INHALE 2 PUFFS BY MOUTH EVERY 12 HOURS. active Not Available Not Available No t Available Calcium 600 + D(3) 600 mg-10 mcg (400 unit) tablet Take 2 tablet(s) every day by oral route. active Not Available Not Available No t Available Osteo Bi-Flex active Not Available Not Available Not Available Amabelz 0.5 mg-0.1 mg tablet TAKE ONE TABLET BY MOUTH ONCE DAILY FOR 28 DAYS 10/15 completed Not Available Not Available Not Available Paxlovid 300 mg (150 mg x 2)-100 mg tablets in a dose pack TAKE 2 TABLETS OF NIRMATREL VIR WITH 1 TABLET OF RITONAVIR TOGETHER BY MOUTH TWICE DAILY FOR 5 DAYS 05/25 completed Not Available Not Available Not Available Vitals Date Recorded Body height Body mass index (BMI) Body weight Systolic blood pressure Diastolic blood pressure Provider Name and Address Organization Details Last Updated DateTime 10/15/2020 160.02 cm 28 kg/m2 43785.59 g 114 mm[Hg] 74 mm[Hg] Teresa Jordan MA [facility] 1 10:00:02 Date Recorded Body height Body mass index (BMI) Body weight Systolic blood pressure Diastolic blood pressure Provider Name and Address Organization Details Last Updated DateTime 10/15/2021 160.02 cm 27.8 kg/m2 86157 g 120 mm[Hg] 78 mm[Hg] Mali Nguyễn MA [facility] 2 09:16:00 Date Recorded Body height Body mass index (BMI) Body weight Systolic blood pressure Diastolic blood pressure Provider Name and Address Organization Details Last Updated DateTime 05/26/2022 160.02 cm 27.5 kg/m2 38538.82 g 130 mm[Hg] 70 mm[Hg] Teresa Jordan MA [facility] 2 12:10:25 Date Recorded Body height Body mass index (BMI) Body weight Systolic blood pressure Diastolic blood pressure Provider Name and Address Organization Details Last Updated DateTime 05/25/2023 160.02 cm 28.7 kg/m2 89984.96 g 144 mm[Hg] 82 mm[Hg] Teresa Jordan MA [facility] 3 10:44:41 Date Recorded Body height Body mass index (BMI) Body weight Oxygen saturation Oxygen saturation in Arterial blood by Pulse oximetry Heart rate Respiratory rate Systolic blood pressure Diastolic blood pressure Provider Name and Address Organization Details Last Updated DateTime 4 160.02 cm 26.6 kg/m2 65164.3 1 g 100 % 100 % 72 /min 18 /min 136 mm[Hg] 80 mm[Hg] Sultana Perea MA [place] [facility] 4 09:48:33 Social History Question Answer Notes LastModified by Organizat ion Details LastModified Time Tobacco Smoking Status Never Smoker Laura Diehl MA null, [place] - [facility] 04/29/2015 11:49:09 Do You Have An Advance Directive? No [email or web address] Information not available 07/27/2017 What Is Your Level Of Alcohol Consumption? None Information not available 04/29/2015 Is Blood Transfusion Acceptable In An Emergency? Yes [email or web address] Information not available 07/27/2017 What Is Your Level Of Caffeine Consumption? Moderate Information not available 04/29/2015 How Much Tobacco Do You Chew? None Information not available 04/29/2015 Are You Currently Employed? Yes Information not available 04/29/2015 What Type Of Diet Are You Following? REGULAR Information not available 04/29/2015 Which Illicit Or Recreational Drugs Have You Used? None Information not available 04/29/2015 Education 12 Information no t available 04/29/2015 What Is The Highest Grade Or Level Of School You Have Completed Or The Highest Degree You Have Received? 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 With Others Information not available 04/29/2015 What Was The Date Of Your Most Recent Tobacco Screening? 06/18/2024 [email or web address] Information not available 06/18/2024 How Many Children Do You Have? 3 Information not available 04/29/2015 Performs Monthly Self-breast Exam? Yes Information not available 04/29/2015 What Is Your Relationship Status? Information not available 04/29/2015 Do You Use Your Seat Belt Or Car Seat Routinely? Yes Information not available 10/15/2020 Seat Belts Used Routinely Yes Information not available 04/29/2015 Are You Sexually Active? No Information not available 04/29/2015 Do You Have Smoke And Carbon Monoxide Detectors In Your Home? Yes Information not available 10/15/2020 Are You Passively Exposed To Smoke? No Information not available 10/15/2020 How Much Tobacco Do You Smoke? No Information not available 04/29/2015 General Stress Level Low Information not available 04/29/2015 Do You Use Any Illicit Or Recreational Drugs? Yes Marijuana Information not available 05/26/2022 Do You Use Sunscreen Routinely? Yes Information not available 04/29/2015 Has Tobacco Cessation Counseling Been Provided? Yes Information not available 05/25/2023 On What Date Was Tobacco Cessation Counseling Provided? 05/25/2023 Information not available 05/25/2023 Do You Or Have You Ever Used Any Other Forms Of Tobacco Or Nicotine? No Information not available 05/26/2022 Sex: Unknown Functional Status Question Answer Note LastModified by Organization D etails LastModified Time What is your exercise level? Moderate Information not available 04/29/2015 Mental Status None recorded. Family History Relationship Description Onset Age of this Age Resolved Age Notes LastModified by Organization Details LastModified Time Father Malignant tumor of prostate 72 92 Not available 2014 11:49:08 Paternal Grandmother Malignant neoplasm of liver 83 83 Not available 2014 11:49:08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
== END 2024-10-18 16:16 | disposition home or self-care (01) ==
PROVIDERS: PCP Nurse Practitioner; Visit Provider Physician Assistant Medical
DX: Z12.31 Encounter for screening mammogram for malignant neoplasm of breast (principal)
CPT/HCPCS: 77063; 77067

== ENCOUNTER 2024-12-05 01:11 | Day surgery (SDC) | payer MEDICARE, SELFPAY ==
[2024-11-26 13:51] VITALS: BMI 26.7
--- OUTSIDE RECORDS SUMMARY | 2024-12-05 01:16 | XMS_ITS | Data Portability ---
[facility] Address [address] [place] [address] Care Team Providers Care Elementary Principal Name Role Phone BLAKE DIEGO Card Painter Assessment Encounter Date Assessment Date Assessment LastModified by Organization Details LastModified Time 06/18/2024 06/18/2024 Sagar BOOTH Not available 06/18/2024 10:14:16 Plan of Treatment Reminders Order Date Submit Date Provider Last Modified By Organization Details Last Modified Time Details Appointments ANY 15 2025 10:00A M BLAKE DIEGO PA-C Not available Not available Not available Lab pap, IG + HPV, cervical 2022 023 [facility], [address], [place], [address], 05/28/2023 20:08:17 streptoc occus group B, culture, unspecif ied specimen 2020 021 [facility], [address], [place], [address], 10/19/2020 10:35:41 bacteria l vaginosi s panel, vaginal 2020 021 [facility], [address], [place], [address], 10/19/2020 10:35:40 urinalys is, dipstick 2020 021 gurvinder In-Office Order, Internal Use Only DO Not Attach Compendium DO Not Attach Compendium, Do Not Delete/merge, [id number] 10/15/2020 11:39:28 Referral None recorded . Procedures None recorded . Surgeries None recorded . Imaging DEXA 2022 023 [facility] (Imaging), [address], [place], [address], 10/10/2023 01:05:09 MAMMO, screenin g, bilatera l 2022 024 [facility] (Mammography) , [address], [place], [address], 10/13/2023 14:49:15 MAMMO, screenin g, bilatera l 2021 022 [facility] (Mammography) , [address], [place], [address], 08/16/2022 17:18:36 DEXA 2020 021 [facility], [address], [place], [address], 03/02/2021 17:23:52 MAMMO, screenin g, bilatera l 2020 021 [facility], [facility], [place], [address], 03/24/2021 16:41:40 Medication Orders alendron ate 70 mg tablet 2023 024 [facility], [address] [place] [address], [id number], 11/05/2024 11:46:05 valacycl ovir 1 gram tablet 2023 024 [facility], [address] [place] [address], [id number], 11/05/2024 11:46:05 alendron ate 70 mg tablet 2021 [id number], [address] [place] [address], [address], 05/26/2022 12:20:17 Calcium 600 + D(3) 600 mg-10 mcg (400 unit) tablet 2021 [facility] [id number], [address], 05/26/2022 12:20:18 alendron ate 70 mg tablet 2021 [facility] [address], [address], 10/15/2021 09:34:32 Calcium 600 + D(3) 600 mg-10 mcg (400 unit) tablet 2021 [facility] [address], [address], 10/15/2021 09:34:31 valacycl ovir 1 gram tablet 2021 022 [facility] [address], [address], 10/15/2021 09:34:31 acyclovi r 800 mg tablet 2020 021 [facility] [id number], [address], 10/15/2021 09:33:25 estradio l 0.5 mg tablet 2020 021 [facility] [address], [address], 10/15/2021 10:03:19 norethin drone (contrac eptive) 0.35 mg tablet 2020 021 [facility]i [facility] [id number] In [facility], [address] [place], [address], 10/15/2021 10:03:22 Patient TargetsNo targets recorded. Patient Instructions Encounter Date Encounter Id Patient Instructions Last Modified By Organization Details Last Modified Time 10/15/2020 [id number] bacterial vaginosis: care instructions mwasserman Not available 10/15/2020 11:39:28 mammogram: about this test mwasserman Not available 10/15/2020 11:39:28 mammogram screening patient instructions [email or web address] Not available 10/15/2020 11:39:28 10/15/2021 [id number] osteoporosis: care instructions Not available 10/15/2021 09:34:[address] Blanca collier Not available 10/26/2021 15:09:39 05/26/2022 [id number] osteoporosis: care instructions Not available 05/26/2022 12:20:10 A healthy lifestyle: care instructions Not available 05/26/2022 12:49:54 learning about breast cancer screening Not available 05/26/2022 12:20:10 05/25/2023 [id number] A healthy lifestyle: care instructions Not available 05/25/2023 10:59:20 well visit, women 50 to 65: care instructions Not available 05/25/2023 10:55:22 learning about breast cancer screening Not available 05/25/2023 10:55:22 LEOBARDO Rehman discussed with STEPHANIE [email or web address] Not available 05/25/2023 12:21:49 06/18/2024 [id number] osteoporosis: care instructions [email or web address] Not available 06/18/2024 10:24:48 A healthy lifestyle: care instructions [email or web address] Not available 06/18/2024 10:24:48 --Discussed with Dr. [...] DO Not Attach Compendium, Do Not Delete/merge, [id number] 10/15/2020 10:05:19 10/16/19 21 10/15/2020 urina lysis , dipst ick Nitrite negati ve Not Available In-Office Order Internal Use Only DO Not Attach Compendium DO Not Attach Compendium, Do Not Delete/merge, [id number] 10/15/2020 10:05:19 10/16/19 21 10/15/2020 urina lysis [...] 10/15/2020 urina lysis , dipst ick Specific [place] 1.030 Not Available In-Off ice Order Internal Use Only DO Not Attach Compendium DO Not Attach Compendium, Do Not Delete/merge, 10/15/2020 10:05:19 10/16/19 21 10/15/2020 urina lysis , dipst ick Ketone Negati ve Not Available In-Office Order Internal Use Only DO Not Attach Compendium DO Not Attach Compendium, Do Not Delete/merge, [id number] 10/15/2020 10:05:19 10/16/19 21 10/15/2020 urina lysis , dipst ick Bilirubin Negati ve Not Available In-Office Order Internal Use Only DO Not Attach Compendium DO Not Attach Compendium, Do Not Delete/merge, [id number] 10/15/2020 10:05:19 10/16/19 21 10/15/2020 urina lysis , dipst ick Glucose Negati ve Not Available In-Office Order Internal Use Only DO Not Attach Compendium DO Not Attach Compendium, Do Not Delete/merge, [id number] 10/15/2020 10:05:19 10/16/19 21 10/17/2020 bacte rial vagin osis panel , vagin al hsv 1 INDERJIT NEGATI VE negati ve Not Available [facility] ([facility]) [address] [place], [address], 10/19/2020 10:35:40 10/16/19 21 10/17/2020 bacte rial vagin osis panel , vagin al hsv 2 INDERJIT NEGATI VE negati ve Not Available [facility] ([facility]) [address] [place], [address], 10/19/2020 10:35:40 10/16/19 21 10/18/2020 bacte rial vagin osis panel , vagin al atopobium vaginae LOW - 0 score Not Available [facility] ([facility]) [address] [place], [address], 10/19/2020 10:35:40 10/16/19 21 10/18/2020 bacte rial vagin osis panel , vagin al bvab 2 LOW - 0 score Not Available [facility] ([facility]) [address] [place], [address], 10/19/2020 10:35:40 10/16/19 21 10/18/2020 bacte rial [...] e luzma cteri stics deter mined by [facility] [employer] [facility]. It has not been clear ed or appro sendy by the Food and Drug Admin istra tion. Not Available [facility] ([facility]) [address] [place], [address], 10/19/2020 10:35:40 10/16/19 21 10/18/2020 bacte rial vagin osis panel , vagin al yareli albicans, INDERJIT NEGATI VE negati ve Not Available [facility] ([facility]) [address] [place], [address], 10/19/2020 10:35:40 10/16/19 21 10/18/2020 bacte rial vagin osis panel , vagin al yareli glabrata, INDERJIT NEGATI VE negati ve Not Available [facility] ([facility]) [address] [place], [address], 10/19/2020 10:35:40 10/16/19 21 10/18/2020 bacte rial vagin osis panel , vagin al trich vag by INDERJIT NEGATI VE negati ve Not Available [facility] ([facility]) [address] [place], [address], 10/19/2020 10:35:40 10/16/19 21 10/18/2020 bacte rial vagin osis panel , vagin al chlamydia trachomatis, INDERJIT NEGATI VE negati ve Not Available [facility] ([facility]) [address] [facility], [place], [address], 10/19/2020 10:35:40 10/16/19 21 10/18/2020 bacte rial vagin osis panel , vagin al neisseria gonorrhoeae, INDERJIT NEGATI VE negati ve Not Available [facility] ([facility]) [address] [facility], [place], [address], 10/19/2020 10:35:40 10/16/19 21 10/19/2020 strep tococ [...] n is noted . Not Available [facility] ([facility]) [address] [facility], [place], [address], 10/19/2020 10:35:41 05/25/20 23 05/27/2023 IGP, APTIM A HPV HPV aptima NEGATI VE negati ve This nucle ic acid ampli ficat ion test detec ts fourt een high- risk HPV types (16,1 8,31, 33,35 ,39,4 5,51, 52,56 ,58,5 9,66, 68) witho ut diffe renti ation . Not Available [facility] ([facility]) [address] [facility], [place], [address], 05/28/2023 20:08:17 05/25/20 23 05/28/2023 IGP, APTIM A HPV diagnosis: MILDRED Huddleston NEGAT THREESA FOR INTRA EPITH ELIAL LESIO N OR MALELDER SCHROEDERCY . CELLU LAR PANCHAL ES ASSOC IATED WITH ATROP HY ARE PRESE NT. Not Available [facility] ([facility]) [address] [facility], [place], [address], 05/28/2023 20:08:17 05/25/20 23 05/28/2023 IGP, APTIM A HPV specimen adequacy: MILDRED Huddleston Satis facto ry for evalu ation . Endoc ervic al compo nent may not be disti nguis hed in cases of atrop hy. Areas of parti ally obscu ring infla mmato ry exuda te are prese nt. Not Available [facility] ([facility]) [address] [facility], [place], [address], 05/28/2023 20:08:17 05/25/20 23 05/28/2023 IGP, APTIM A HPV clinician provided ICD10: MILDRED Huddleston Z01.4 19 Not Available [facility] ([facility]) [address] [facility], [place], [address], 05/28/2023 20:08:17 05/25/20 23 05/28/2023 IGP, APTIM A HPV performed by: MILDRED Ireland , Cytot echno eleuterio t (ASCP ) Not Available [facility] ([facility]) [address] [facility], [place], [address], 05/28/2023 20:08:17 05/25/20 23 05/28/2023 IGP, APTIM A HPV . . Not Available [facility] ([facility]) [address] [facility], [place], [address], 05/28/2023 20:08:17 05/25/20 23 05/28/2023 IGP, APTIM [...] ts do occur . Not Available [facility] ([facility]) [address] [facility], [place], [address], 05/28/2023 20:08:17 05/25/20 23 05/28/2023 IGP, APTIM A HPV test methodology: COMMEN T This liqui d based ThinP rep(R ) pap test was scree tarun with the use of an image guide gissell systkeya m. Not Available [facility] ([facility]) [address] [facility], [place], [address], 05/28/2023 20:08:17 03/02/20 21 03/02/2021 DEXA No observ ation record ed. [address], [address], 10/15/2021 09:22:40 03/24/20 21 03/24/2021 MAMMO , scree ac, bilat eral No observ ation record ed. [address], [address], 10/15/2021 09:22:40 04/01/20 21 DEXA No observ ation record ed. [address] [place] [id number], [place], [address], 10/15/2021 09:22:40 08/16/19 23 08/03/2022 MAMMO , scree ac, bilat eral No observ ation record ed. [facility] (Mammography) [address], [place], [address], 08/18/2022 08:01:56 10/09/19 24 10/07/2023 DEXA No observ ation record ed. [address], [place], [address], 06/18/2024 10:24:33 10/13/19 24 10/13/2023 MAMMO , scree ac, bilat eral No observ ation record ed. [address] (Mammography) [address], [place], [address], 06/18/2024 10:24:20 10/19/19 25 10/18/2024 MAMMO , scree ac, bilat eral No observ ation record ed. [address] [address], [place], [address], 10/24/2024 14:47:08 Result Notes None recorded. Problems Name Problem SNOMED Code Status Onset Date Resolution Date Notes Provider Name and Address Organization Details Recorded Time [facility]menopa [facility] 80898888 Active 2018 LUCILA Moser 9 10:52:19 Herpes simplex 16006302 Active 2018 LUCILA Moser 9 11:00:07 Mammograph y abnormal 489372508 Active 2019 LUCILA Moser 0 08:52:30 Osteoporos is 35200705 Active 202010/07/23: no signicant change from previous. Consistent with low bone mas. continued medication therapy with alendronat e (started) in 2020, calcium and vit. Recommend 2 year follow-up. : 2025 Samantha Castillo MD Attn: Kaitlin jones,[address] [facility], [place], [address], [facility] 4 11:21:58 Problem Notes None recorded. Procedures Surgical History Date Name Laterality Status Provider Name and Address Organization Details Recorded Time 4 Date of Last Mammogram completed Tatum Hernandez RN [facility] 10/13/2023 14:49:27 4 Most Recent Mammogram completed Sultana Perea MA [facility] 06/18/2024 09:46:28 3 Date of Last Pap Smear completed Sultana Perea MA [facility] 06/18/2024 09:44:44 1 Caesarean Section completed Laura Diehl MA [facility] 04/29/2015 11:49:08 8 Caesarean Section completed Laura Diehl MA [facility] 04/29/2015 11:49:08 7 Caesarean Section completed Laura Diehl MA [facility] 04/29/2015 11:49:08 Imaging Results None recorded. Procedure Notes None recorded. Medical Equipment None [...] mg tablet TAKE 2 TABLETS BY MOUTH ON DAY 1, THEN TAKE 1 TABLET ONCE A DAY FOR THE NEXT 4 DAYS active Not Available Not Available No t Available ibuprofen 800 mg tablet TAKE ONE TABLET BY MOUTH EVERY 6 HOURS NEEDED FOR PAIN active Not Available Not Available No t Available fluconazole 150 mg tablet Take 1 tablet by oral route. 10/15 completed Not Available Not Available Not Available levetiracet am 500 mg tablet 07/27 completed Not Available Not Available Not Available valacyclovi r 1 gram tablet TAKE ONE TABLET BY MOUTH EVERY MORNING FOR INFECTION active Not Available Not Available No t Available hydrocodone 5 mg-acetamin ophen 325 mg tablet TAKE 1 TABLET BY MOUTH EVERY 4 HOURS NEEDED FOR PAIN 06/18 completed Not Available Not Available Not Available alendronate 70 mg tablet TAKE 1 TABLET WEEKLY AN THE SAME DAY EACH WEEK ON AN EMPTY STOMACH WITH 8 OUNCES OF WATER. WAIT 30 MINUTES BEFORE EATING, DRINKING AND DO NOT LIE DOWN FOR 30 MIUTES AFTER TAKING 2024 active Not Available Not Available Not Avai lable metronidazo le 500 mg tablet Take 1 tablet twice a day by oral route for 7 days. 10/11 completed Not Available Not Available Not Available tramadol 50 mg tablet TAKE ONE TABLET BY MOUTH EVERY 6 HOURS NEEDED FOR PAIN active Not Available Not Available No t Available triamcinolo ne acetonide 0.1 % topical [...] e 40 mg tablet,kathleen yed release TAKE 1 TABLET BY MOUTH EVERY MORNING BEFORE MEALS FOR STOMACH active Not Available Not Available No t Available dexamethaso ne 4 mg tablet TAKE ONE TABLET NOW AND ONE AT BEDTIME THEN ONE EVERY DAY FOR 3 DAYS active Not Available Not Available No t Available montelukast 10 mg tablet TAKE ONE TABLET BY MOUTH EVERY MORNING FOR BREATHING active Not Available Not Available [...] Not Available Not Available No t Available Dulera 200 mcg-5 mcg/actuati on HFA aerosol inhaler INHALE TWO PUFFS BY MOUTH TWICE DAILY EVERY MORNING & EVENING FOR BREATHING active Not Available Not Available [...] Body mass index (BMI) Body weight Systolic And Diastolic Provider Name and Address Organization Details Last Updated DateTime 10/15/2020 160.02 cm 28 kg/m2 83722.59 g 114/74 mm[Hg] Teresa Jordan MA [facility] 10/15/2020 10:00:02 Date Recorded Body height Body mass index (BMI) Body weight Systolic And Diastolic Provider Name and Address Organization Details Last Updated DateTime 10/15/2021 160.02 cm 27.8 kg/m2 86809 g 120/78 mm[Hg] Mali Nguyễn MA [facility] 10/15/2021 09:16:00 Date Recorded Body height Body mass index (BMI) Body weight Oxygen saturation Oxygen saturation in Arterial blood by Pulse oximetry Heart rate Systolic And Diastolic Provider Name and Address Organization Details Last Updated DateTime 160.02 cm 27.6 kg/m2 77127.4 1 g 100 % 100 % 83 /min 148/82 mm[Hg] Mali Nguyễn MA [facility] 10:37:17 Date Recorded Body height Body mass index (BMI) Body weight Systolic And Diastolic Provider Name and Address Organization Details Last Updated DateTime 05/25/2023 160.02 cm 28.7 kg/m2 39681.96 g 144/82 mm[Hg] Teresa Jordan MA [facility] 05/25/2023 10:44:41 Date Recorded Body height Body mass index (BMI) Body weight Systolic And Diastolic Provider Name and Address Organization Details Last Updated DateTime 05/26/2022 160.02 cm 27.5 kg/m2 13563.82 g 130/70 mm[Hg] Teresa Jordan MA [facility] 05/26/2022 12:10:25 Date Recorded Body height Body mass index (BMI) Body weight Oxygen saturation Oxygen saturation in Arterial blood by Pulse oximetry Heart rate Respiratory rate Systolic And Diastolic Provider Name and Address Organization Details Last Updated DateTime 160.02 cm 26.6 kg/m2 05405.3 1 g 100 % 100 % 72 /min 18 /min 136/80 mm[Hg] Sultana Perea MA [facility] 09:48:33 Social History Question Answer Notes LastModified by Organizat ion Details LastModified Time Tobacco Smoking Status Never Smoker Laura Diehl MA [facility], [place] - [facility] 04/29/2015 11:49:09 Do You Have An Advance Directive? No [email or web address] Information not available 07/27/2017 Is Blood Transfusion Acceptable In An Emergency? Yes [email or web address] Information not available 07/27/2017 What Is Your Level Of Caffeine Consumption? Moderate Information not available 04/29/2015 How Much Tobacco Do You Chew? None Information not available 04/29/2015 What Type Of Diet Are You Following? REGULAR Information not available 04/29/2015 Which Illicit Or Recreational Drugs Have You Used? None Information not available 04/29/2015 Education 12 Information no t available 04/29/2015 What Is The Highest Grade Or Level Of School You Have Completed Or The Highest Degree You Have Received? [id number] Information not available 10/15/2020 Live Alone Or With Others? With Others Information not available 04/29/2015 What Was The Date Of Your Most Recent Tobacco Screening? 06/18/2024 [email or web address] Information not available 06/18/2024 How Many Children Do You Have? 3 Information not available 04/29/2015 Performs Monthly Self-breast Exam? Yes Information no t available 04/29/2015 What Is Your Relationship Status? [...] You Passively Exposed To Smoke? No Information no t available 10/15/2020 How Much Tobacco Do You Smoke? No Information not available 04/29/2015 General Stress Level Low Information not available 04/29/2015 Do You Use Sunscreen Routinely? Yes Information not available 04/29/2015 Has Tobacco Cessation Counseling Been Provided? Yes Information not available 05/25/2023 On What Date Was Tobacco Cessation Counseling Provided? 05/25/2023 Information not available 05/25/2023 Sex: Unknown Functional Status Question Answer Note LastModified by Organizat ion Details LastModified Time Do you use any illicit or recreational drugs? Yes marijuana Information not available 05/26/2022 Do you or have you ever used any other forms of tobacco or nicotine? No Information not available 05/26/2022 What is your level of alcohol consumption? None Information not available 04/29/2015 Are you currently employed? 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 Moderate Information not available 04/29/2015 Mental Status None recorded. Family History Relationship Description Onset Age of this Age Resolved Age Notes LastModified by Organization Details LastModified Time Father Malignant neoplasm of prostate 72 92 Not available 2014 11:49:08 Paternal Grandmother Malignant neoplasm of liver 83 83 Not available 2014 11:49:08 Medical History Condition Response Other N Breast Cancer N Lung Disease N Depression N Blood Clots N Breast Problem N Anesthesia Complications N Headaches/Migraines Y Anxiety Disorder N Muscle, Joint, or Bone Problems N Arthritis N Infertility N Polyps N Acid Reflux (GERD) Y Cancer N Stroke N Endometriosis N High Cholesterol N Liver Disease N Fibromyalgia N Kidney Disease N Heart Problems N Thyroid Problems N Kidney or Bladder Problems N GI Problems N Acne N Eating Disorder N Anemia N Ovarian Cancer N Diabetes N Blood Transfusions N Seizures/Epilepsy N Abuse/Domestic Violence N Asthma Y Hepatitis N Heart Disease N Pre-Eclampsia N Hypertension N Osteoporosis N Gynecological History Statement/Question Response Abnormal Pap [...] virus, quadrivalent, preservative 6 completed Not Available [facility] 07/28/2019 02:47:19 Influenza, split virus, quadrivalent, preservative 8 completed Not Available [facility] 07/28/2019 02:34:52 Influenza, split virus, quadrivalent, preservative 9 completed Not Available [facility] 07/28/2019 02:38:42 Influenza, split virus, quadrivalent, preservative 0 completed Kiersten Esteves MA null, [place] - [facility] 04/11/2020 13:08:08 pneumococcal polysaccharide PPV23 0 completed Kiersten Esteves [place] null, [place] - [facility] 04/11/2020 13:08:08 Influenza, split virus, quadrivalent, preservative 5 completed Not Available [facility] 07/28/2019 02:32:10 Past Encounters Encounter ID Performer Location Encounter Start Date Encounter Closed Date Diagnosis/Indication Diagnosis SNOMED-CT Code Diagnosis ICD10 Code Diagnosis Note [id number] MD Dmitry Welsh (MARKETING SUPPORT SPECIALIST) [address] [place] [phone] 04/29/2015 11:05:21 04/29/2015 13:31:44 Administration of influenza vaccine 35715745 Z23 Screening for malignant neoplasm of breast 790131309 Z12.39 [id number] [facility] [address] [place] [phone] 05/04/2016 09:49:45 05/05/2016 21:26:19 Gynecologic examination 00189495 Z01.419 Screening for malignant neoplasm of breast 136828108 Z12.39 Atrophic vaginitis 22825 000 N95.2 Herpes zoster 0936354 B0 2.9 Administra tion of influenza vaccine 48768640 Z23 Genital he rpes simplex 91057422 A60.9 [id number] [facility] [address] [place] [id number] 07/27/2017 15:19:32 07/27/2017 17:10:07 Gynecologic examination 92146502 Z01.419 Z11.51 Screening mammography 24 443675 Z12.31 not due until 06/2018 Administra tion of influenza vaccine 84600849 Z23 Genital he rpes simplex 50053921 A60.9 Atrophic vaginitis 15989 000 N95.2 [id number] MD Dmitry Welsh (MARKETING SUPPORT SPECIALIST) [address] [place] [phone] 10/11/2018 10:01:41 10/11/2018 14:24:01 Postmenopausal state 62153647 Z78.0 Gynecologi c examination 38353706 Z01.419 Z11.51 Screening mammography 24 385983 Z12.31 not due until 06/2018 Herpes simplex 31871427 B00.9 [id number] ALESIA LUNA (MARKETING SUPPORT SPECIALIST) [address] [place] [id number] 05/04/2019 10:16:48 05/07/2019 11:58:17 Administration of influenza vaccine 12418985 Z23 [id number] ALESIA LUNA (MARKETING SUPPORT SPECIALIST) [address] [place] [phone] 04/11/2020 11:27:09 04/15/2020 15:00:02 Active or passive immunization 679804390 Z23 [id number] MD Dmitry Welsh (MARKETING SUPPORT SPECIALIST) [address] [place] [phone] 10/15/2020 09:37:15 10/20/2020 11:03:41 Screening for malignant neoplasm of breast 985828003 Z12.39 Postmenopausal state 764 25605 Z78.0 Herpes simplex 34960270 B00.9 Bacterial vaginosis 4197 17487 N76.0 Screening for osteoporosis 443805585 Z13.922 [id number] ALESIA LUNA (MARKETING SUPPORT SPECIALIST) [address] [place] [phone] 10/15/2021 08:46:02 10/26/2021 16:48:52 Osteoporosis 24852841 M81.0 DEXA Mar 2021 with osteoporos is (Left femoral T score -2.4). Continue alendronat e, calcium/vi tamin D supplement s, and weight bearing exercises. Repeat DEXA in Mar 2023. Postmenopausal state 764 55291 Z78.0 Cervical cancer screening: Last Pap 10/2018 [...] discussed. Genital he rpes simplex type 2 615038458 A60.00 No current outbreaks. Medication refill for HSV suppressio n. [id number] ALESIA LUNA (MARKETING SUPPORT SPECIALIST) [address] [place] [phone] 0 05/26/2022 11:31:11 06/02/2022 08:33:41 Osteoporosis 37244684 M81.0 DEXA Mar 2021 with osteoporos is (Left femoral T score -2.4). Continue alendronat e, calcium/vi tamin D supplement s, and weight bearing exercises. Repeat DEXA in Mar 2023. Screening for malignant neoplasm of breast [id number] Z12.31 Annual screening order provided Overweight 512609759 E66 .3 BMI 27.5. Recommende d daily exercise with a goal of 150 min/week of moderate-s trenuous activity and a balanced diet with an emphasis on fruits, vegetables , whole grains, legumes, lean protein, and mono/polyu nsaturated fats. Gynecologi c examination 39752332 Z01.419 Cervical cancer screening: Last Pap 10/2018 NILM, HPV neg, due Octoberreast cancer screening: Last mammogram Mar 2021, BIRADS 1.Colonosc opy: UTDDiet/ex ercise: Counseled regarding importance of physical activity, healthy diet and appropriat e calcium intake.RTC in 1 year [id number] ALESIA LUNA (MARKETING SUPPORT SPECIALIST) [address] [place] [phone] 05/25/2023 10:21:36 06/06/2023 13:22:03 Gynecologic examination [id number] Z01.419 Cervical cancer screening: Last Pap 10/2018 NILM, HPV neg, due 2023; Pap/HPV test today per patient requestBre ast cancer screening: Last mammogram Jul 2022, BIRADS 1. Next annual screening mamm orderedCol onoscopy: UTDDiet/ex ercise: Counseled regarding importance of physical activity, healthy diet and appropriat e calcium intake.RTC in 1 year Screening for malignant neoplasm of breast [id number] Z12.31 Annual screening ordered for Jul 2023 Osteoporosis 13906385 M8 1.0 DEXA Mar 2021 with osteoporos is (Left femoral T score -2.4). Continue alendronat e, calcium/vi tamin D supplement s, and weight bearing exercises. Repeat DEXA ordered Overweight 907073974 E66 .3 per BMI 28.7. 

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
[2024-12-05 10:48] VITALS: BP 154/82; PULSE 87; RESP 20; TEMP 36.1; O2SAT 100
[2024-12-05] MEDS: LACTATED RINGERS 1,000 ML 150 ML IV CONT (11:00)
--- NOTE | 2024-12-05 11:18 | P.PNAN_ITS ---
Anes - Initial Pre Proc Eval Procedure: Operation Date: 12/05/24 11:30 Proposed Procedures p Colonoscopy - Nj Sanford MD Date/Time: 12/05/24 11:18 Surgeon: Nj Sanford MD Pre Op Diagnosis: Personal history of colon polyps, unspecified Patient Data Age: 64 Gender: F Height: 1.57 m Weight: 66.4 kg Last Vital Signs Temp 97 F L 12/05/24 10:48 Pulse 87 12/05/24 10:48 Resp 20 12/05/24 10:48 BP 154/82 H 12/05/24 10:48 Pulse Ox 100 12/05/24 10:48 O2 Del Method Room Air 12/05/24 10:48 Allergies Allergy/AdvReac Type Severity Reaction Status Date / Time No Known Allergies Allergy Verified 12/05/24 10:46 Home Medications ?Medication ?Instructions ?Recorded ?Confirmed ?Type cholecalciferol (vitamin D3) 125 125 mcg PO DAILY #30 caps 09/12/20 12/05/24 Rx mcg (5,000 unit) capsule alendronate 70 mg tablet 70 mg PO WEEKLY 09/11/21 12/05/24 History acyclovir 800 mg tablet 800 mg PO DAILY 10/07/21 12/05/24 History glucosamine-chondroitin 250 mg-200 2 tablet PO DAILY 10/07/21 12/05/24 History mg tablet (Osteo Bi-Flex) multivitamin with minerals-folic 1 tablet PO DAILY 10/07/21 12/05/24 History acid 0.4 mg tablet methocarbamol 750 mg tablet 750 mg PO TID PRN muscle spasm #45 04/19/22 11/26/24 Rx tabs cetirizine 10 mg tablet (Zyrtec) 10 mg PO DAILY PRN Allergic 11/09/22 11/26/24 History Symptoms triamcinolone acetonide 55 mcg 2 spray intranasal DAILY 11/09/22 12/05/24 History nasal spray aerosol (Nasacort Allergy) montelukast 10 mg tablet 10 mg PO DAILY #90 tabs 06/01/24 12/05/24 Rx pantoprazole 40 mg tablet,delayed See Rx Instructions .Route 09/10/24 12/05/24 Rx release .COMPLEX #30 tabs albuterol sulfate 90 mcg/actuation 2 inh inhalation Q4H PRN shortness 11/15/24 11/26/24 Rx aerosol inhaler (Ventolin HFA) of breath or wheezing #18 grams mometasone-formoterol HFA 200 2 puff inhalation BID #13 grams 11/15/24 12/05/24 Rx mcg-5 mcg/actuation aerosol inhaler (Dulera) Patient hx anesthesia problems: none Family hx anesthesia problems: none Results Review: All pre-operative results and documents have been reviewed as part of the pre- operative evaluation. [facility] Past Medical History Medical History BMI 27.0-27.9,adult Hx of traumatic brain injury Chronic low back pain COVID-19 Osteoporosis Uncomplicated asthma Vitamin D deficiency Surgical History Surgical History Previous section Family History Family History Mother Hypertension, Onset Age: 57 heart failure induced from drug addiction. Father Family history of malignant neoplasm Malignant neoplasm of prostate Cancer Cerebrovascular accident Sibling , head trauma No problems noted. Sibling No problems noted. 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 Substance use: current Substance use type: marijuana Last use: daily Do You Feel Safe in your Home?: Yes Lack of Transportation: No Lack of Food: Never True Current Housing: I Have Housing Concerned About Future Housing: No Difficulty Paying Gas/Electric Bills: No Difficulty Paying for Meds: No Currently Unemployed: No Education: High School Diploma/GED Difficulty w/ Childcare or Family Care: No Living arrangements: alone Occupation/Education: retired Additional occupation/education comments: works for [employer] Gender identity (if verbalized by the patient): Female Sexual Orientation (if Verbalized by the Patient): Straight or Heterosexual Spiritual care concerns: No Anes - Eval Final PreProcedure Day of Procedure 12/05/24 11:18 Patient weight: normal Heart: regular rate and rhythm Lungs: clear to auscultation Airway: Mallampati scale class II Neurological: alert and oriented Last oral intake: >/= 8 hours ASA classification: III Emergent: no Anesthetic plan: proceed Anesthesia type and monitoring: general GIVS and standard monitoring Results Review: All pre-operative results and documents have been reviewed as part of the pre- operative evaluation. Informed Consent: The patient's anesthetic plan and its attendant risks and benefits were discussed with the patient/family/POA. Questions were solicited and answers provided to the satisfaction of the patient/family/POA.
--- NOTE | 2024-12-05 11:29 | PM.HPGS ---
History of Present Illness History of Present Illness Consent: Risks, benefits, and alternatives have been discussed and questions answered. Patient agrees to proceed with procedure. Chief complaint: Personal history of colon polyps, unspecified Narrative: Brittany Simon is a 64 year old female with colon polyp in 2021 Review of Systems Review of Systems: All systems reviewed & are unremarkable except as noted in HPI and below PMFSH Past Medical History Medical History BMI 27.0-27.9,adult Hx of traumatic brain injury Chronic low back pain COVID-19 Osteoporosis Uncomplicated asthma Vitamin D deficiency Surgical History Surgical History Previous section Family History Family History Mother Hypertension, Onset Age: 57 heart failure induced from drug addiction. Father Family history of malignant neoplasm Malignant neoplasm of prostate Cancer Cerebrovascular accident Sibling , head trauma No problems noted. Sibling No problems noted. 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 Substance use: current Substance use type: marijuana Last use: daily Do You Feel Safe in your Home?: Yes Lack of Transportation: No Lack of Food: Never True Current Housing: I Have Housing Concerned About Future Housing: No Difficulty Paying Gas/Electric Bills: No Difficulty Paying for Meds: No Currently Unemployed: No Education: High School Diploma/GED Difficulty w/ Childcare or Family Care: No Living arrangements: alone Occupation/Education: retired Additional occupation/education comments: works for [email or web address] Gender identity (if verbalized by the patient): Female Sexual Orientation (if Verbalized by the Patient): Straight or Heterosexual Spiritual care concerns: No Meds Home Medications and Allergies Home Medications ?Medication ?Instructions ?Recorded ?Confirmed ?Type cholecalciferol (vitamin D3) 125 125 mcg PO DAILY #30 caps 09/12/20 12/05/24 Rx mcg (5,000 unit) capsule alendronate 70 mg tablet 70 mg PO WEEKLY 09/11/21 12/05/24 History acyclovir 800 mg tablet 800 mg PO DAILY 10/07/21 12/05/24 History glucosamine-chondroitin 250 mg-200 2 tablet PO DAILY 10/07/21 12/05/24 History mg tablet (Osteo Bi-Flex) multivitamin with minerals-folic 1 tablet PO DAILY 10/07/21 12/05/24 History acid 0.4 mg tablet methocarbamol 750 mg tablet 750 mg PO TID PRN muscle spasm #45 04/19/22 11/26/24 Rx tabs cetirizine 10 mg tablet (Zyrtec) 10 mg PO DAILY PRN Allergic 11/09/22 11/26/24 History Symptoms triamcinolone acetonide 55 mcg 2 spray intranasal DAILY 11/09/22 12/05/24 History nasal spray aerosol (Nasacort Allergy) montelukast 10 mg tablet 10 mg PO DAILY #90 tabs 06/01/24 12/05/24 Rx pantoprazole 40 mg tablet,delayed See Rx Instructions .Route 09/10/24 12/05/24 Rx release .COMPLEX #30 tabs albuterol sulfate 90 mcg/actuation 2 inh inhalation Q4H PRN shortness 11/15/24 11/26/24 Rx aerosol inhaler (Ventolin HFA) of breath or wheezing #18 grams mometasone-formoterol HFA 200 2 puff inhalation BID #13 grams 11/15/24 12/05/24 Rx mcg-5 mcg/actuation aerosol inhaler (Dulera) Allergies Allergy/AdvReac Type Severity Reaction Status Date / Time No Known Allergies Allergy Verified 12/05/24 10:46 Vital Signs Vital Signs - 24 hr 12/05/24 10:48 Temperature 97 F L Pulse Rate 87 Respiratory Rate 20 Blood Pressure 154/82 H Pulse Oximetry 100 Oxygen Delivery Room Air Exam Const: General: comfortable and no acute distress HENMT: Face/Nose/Sinus: Normal nares present Eyes: General: appearance normal, both eyes and all related structures Neck: Neck: no JVD Resp: Auscultation: clear to auscultation bilaterally Cardio: Rate: regular rate Rhythm: regular rhythm GI: Inspection: non-distended GI Palp: Yes Soft to palpation Skin: General skin exam: normal color Neuro: Speech: normal speech Extrem: General: normal to inspection Psych: Mental Status: mental status grossly normal Assessment and Plan Assessment and plan (1) History of adenomatous polyp of colon: Code(s): Z86.0101 - Personal history of adenomatous and serrated colon polyps Status: Acute Assessment and Plan: colonoscopy
--- NOTE | 2024-12-05 11:40 | S_PTH ---
PATIENT: Brittany Simon LOC: [facility] Mukherjee#:[id number] AGE/SX: 64/F ROOM: RE12/05/[address]: Nj Sanford MD : 1960 BED: DIS: 12/05/2024 SPEC #: [id number] RECD: 12/05/24 13:19 STATUS: SALEEM REJosé Manuel #: [id number] KARY: 12/05/24 11:[address]: Nj Sanford DEPT: [facility] Surgical RECD BY: Karie Yeager ENTERED: 12/05/24 13:19 SP TYPE: Surgical OTHR DR: Kristopher Gonzalez APRN Tissues: A - Colon Polypectomy Procedures: Hematoxylin and Eosin Stain Gross and Microscopic Level 4
[2024-12-05 11:42] VITALS: BP 112/54; PULSE 71; RESP 16; O2SAT 98
[2024-12-05 11:52] VITALS: BP 110/59; PULSE 65; RESP 25; O2SAT 99
[2024-12-05 12:02] VITALS: BP 130/69; PULSE 65; RESP 19; O2SAT 99
== END 2024-12-05 12:05 | disposition home or self-care (01) ==
PROVIDERS: PCP Nurse Practitioner; Referring Provider Nurse Practitioner; Visit Provider Internal Medicine Gastroenterology
PROC: 0DJD8ZZ Inspection of Lower Intestinal Tract, Via Natural or Artificial Opening Endoscopic (ICD-10-PCS; CPT 45378; principal; 2024-12-05 11:30)
DX: Z12.11 Encounter for screening for malignant neoplasm of colon (principal); K63.5 Polyp of colon; K64.8 Other hemorrhoids; K57.30 Diverticulosis of large intestine without perforation or abscess without bleeding; G89.29 Other chronic pain; M54.50 Low back pain, unspecified; M81.0 Age-related osteoporosis without current pathological fracture; J45.909 Unspecified asthma, uncomplicated; E55.9 Vitamin D deficiency, unspecified; F12.90 Cannabis use, unspecified, uncomplicated; Z79.83 Long term (current) use of bisphosphonates; Z79.51 Long term (current) use of inhaled steroids; Z98.890 Other specified postprocedural states; Z87.891 Personal history of nicotine dependence; Z80.42 Family history of malignant neoplasm of prostate; Z82.49 Family history of ischemic heart disease and other diseases of the circulatory system
CPT/HCPCS: 45385; 88305; J2003; J2704; J7120

== ENCOUNTER 2025-01-23 08:40 | Outpatient (CLI) | payer MEDICARE, SELFPAY ==
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
[2025-01-23 09:01] LABS: Hematocrit 38.7 % (37.0-47.0); Hemoglobin 12.9 g/dL (12.0-15.0); Mean Corpuscular HGB Conc 33.3 g/dl (32-36); Mean Corpuscular Hemoglobin 31.5 pg (26-34); Mean Corpuscular Volume 94.6 fl (80-100); Platelet Count Result 168 k/mm3 (150-375); Red Blood Count 4.09 M/mm3 (4.2-5.4); White Blood Count 4.0 K/mm3 (4.5-10.0)
[2025-01-23 10:08] LABS: Iron 82 ug/dL (37-170)
[2025-01-23 10:10] LABS: Alanine Aminotransferase 16 U/L (6-35); Albumin Level 4.2 g/dL (3.5-5.1); Alkaline Phosphatase 62 U/L (38-126); Anion Gap 4 mmol/L (4-12); Aspartate Amino Transferase 29 U/L (14-36); Bilirubin,Total 0.4 mg/dL (0.2-1.3); Blood Urea Nitrogen 12 mg/dL (7-17); Calcium 9.6 mg/dL (8.4-10.2); Carbon Dioxide 28 mmol/L (22-30); Chloride 109 mmol/L (98-107); Cholesterol 239 mg/dL (0-200); Estimated Glomerular Filt Rate > 60; Glucose 86 mg/dL (65-110); HDL Direct 101 mg/dL; Potassium 3.7 mmol/L (3.4-5.0); Sodium 141 mmol/L (137-145); Total Protein 7.0 g/dL (6.3-8.2); Triglycerides 65 mg/dL (<150)
[2025-01-23 10:18] LABS: Percent Iron Saturation 26 % (20-50)
[2025-01-23 11:04] LABS: Vitamin B12 711.0 pg/mL (239-931)
== END 2025-01-23 08:41 | disposition home or self-care (01) ==
PROVIDERS: PCP Nurse Practitioner; Visit Provider Nurse Practitioner
DX: E55.9 Vitamin D deficiency, unspecified (principal); E78.5 Hyperlipidemia, unspecified; K21.9 Gastro-esophageal reflux disease without esophagitis; Z79.899 Other long term (current) drug therapy
CPT/HCPCS: 36415; 80053; 80061; 82306; 82607; 83540; 83550; 85027

== ENCOUNTER 2025-01-24 10:23 | Outpatient (CLI) | payer MEDICARE, SELFPAY ==
--- NOTE | ~2025-01-24 | XR_ITS ---
EXAM: XR shoulder LT min 2V, XR humerus LT DATE: 01/24/2025 10:54 HISTORY: M25.512 - Pain in left shoulder . COMPARISON: None available. FINDINGS: Osteopenia. No fracture or dislocation. No lytic or blastic lesion. Mild osteoarthritis at the AC joint and glenohumeral joint. 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 No erosion or periosteal change. Soft tissues within normal limits. IMPRESSION: No acute osseous finding the left shoulder or left humerus. Reviewed, dictated and finalized at location K. IMPRESSION: No acute osseous finding the left shoulder or left humerus.
== END 2025-01-24 10:24 | disposition home or self-care (01) ==
PROVIDERS: PCP Nurse Practitioner; Visit Provider Nurse Practitioner
DX: M25.512 Pain in left shoulder (principal)
CPT/HCPCS: 73030; 73060